=== PATIENT | male | born 1955 | race African-American/Black ===

== ENCOUNTER 2025-05-08 21:26 | Inpatient (IN) | payer MEDICARE, SELFPAY ==
[2025-05-08 21:37] VITALS: BP 157/91; PULSE 55; RESP 19; TEMP 35.8; O2SAT 98; BMI 23.6
--- NOTE | 2025-05-08 21:41 | DI.RAD.S_ITS ---
PROCEDURE: XR CHEST 2V INDICATIONS: shortness of breath TECHNIQUE: 2 views of the chest were acquired. COMPARISON: None. FINDINGS: Surgical changes and devices: None. Lungs and pleura: Right infrahilar consolidation, likely atelectasis. Small left pleural effusion. Cephalization of the pulmonary vasculature with central pulmonary vascular congestion. Mediastinum: Moderate cardiomegaly. Bones and chest wall: No suspicious bony abnormalities. Soft tissues appear unremarkable. IMPRESSION: Moderate cardiomegaly with mild pulmonary edema and small bilateral pleural effusions. Dictated by: Alex Hogan M.D. on 05/08/2025 at 22:35 Approved by: Alex Hogan M.D. on 05/08/2025 at 22:37
[2025-05-09] VITALS (24 sets, daily range): BP systolic 125–152; BP diastolic 77–95; PULSE 46–103; RESP 18–42; TEMP 35.9–37.3; O2SAT 92–99; BMI 23.6
--- NOTE | 2025-05-09 01:51 | EKG_ITS ---
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
--- NOTE | 2025-05-09 03:20 | EKG_ITS ---
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
--- NOTE | 2025-05-09 03:47 | ED_ITS ---
HPI - General Adult General Chief complaint: Shortness of Breath/Dyspnea Stated complaint: sick 1wk. SOB Time Seen by Provider: 05/09/25 01:50 Source: patient Mode of arrival: Ambulatory History of Present Illness HPI narrative: 70-year-old male complains of one-week duration of shortness of breath, denies fevers or chills cough, no chest pain. Denies lower extremity edema. No history of congestive heart failure. Denies history of chronic lung disease. Denies recent change in medications. No known recent exposure to persons with URI symptoms or Covid. No known history of blood clots to lungs or legs, no leg pains. Denies recent diaphoresis, nausea, arm pain anginal equivalent like symptoms. Related Data Home Medications ?Medication ?Instructions ?Recorded ?Confirmed No Known Home Medications 05/09/2501/26 Allergies Allergy/AdvReac Type Severity Reaction Status Date / Time No Known Drug Allergies Allergy Verified 05/08/25 21:37 Patient History Social History household members: spouse Smoking Status: Never smoker alcohol intake: current Smoking Status: Never smoker Exam Narrative Exam Narrative: GENERAL: Well-developed patient, in mild distress. HEAD: Atraumatic. Normocephalic. EYES: Pupils equal round and reactive. Extraocular motions intact. No scleral icterus. No injection or drainage. ENT: Nose without bleeding, purulent drainage. Throat without erythema, tonsillar hypertrophy or exudate. Airway patent. NECK: Trachea midline. Non tender CARDIOVASCULAR: Fast rate with regularly irregular rhythm (bigeminy on monitor), without obvious murmurs, gallops, or rubs. RESPIRATORY: Clear to auscultation. Breath sounds equal bilaterally. No wheezes, rales, or rhonchi. GASTROINTESTINAL: Abdomen soft, non-tender, nondistended. EXTREMITIES: No edema or joint tenderness. BACK: Nontender without deformity or crepitance. No flank tenderness. NEURO: AOx3. Motor functions grossly nonfocal. SKIN: No rash or erythema of visible areas Initial Vital Signs Initial Vital Signs: Vital Signs Temperature 96.4 F L 05/08/25 21:37 Pulse Rate 55 L 05/08/25 21:37 Respiratory Rate 19 05/08/25 21:37 Blood Pressure 157/91 H 05/08/25 21:37 Pulse Oximetry 98 05/08/25 21:37 Oxygen Delivery Method Room Air 05/08/25 21:37 Course Orders Ordered: Acetaminophen (Acetaminophen 325 Mg Tablet) 650 mg PO Q6H PRN PRN Reason: Fever/Mild Pain (1-3) Furosemide (Furosemide 40 Mg/4 Ml Vial) 40 mg IV Q12HR [facility] Heparin Sodium (Porcine) (Heparin 5,000 Unit/Ml Vial) 5,000 unit SUBCUT BID [facility] Last Admin: 05/09/25 13:10 Dose: Not Given Documented By: AMRIT Losartan Potassium (Losartan 25 Mg Tablet) 12.5 mg PO DAILY [facility] Naloxone HCl (Naloxone 0.4 Mg/Ml Vial) 0.2 mg IV Q2MIN PRN PRN Reason: Opiate Reversal Ondansetron HCl (Ondansetron 4 Mg/2 Ml Inj) 4 mg IV Q8HR PRN PRN Reason: Nausea And Vomiting Spironolactone (Spironolactone 12.5 Mg Tablet) 12.5 mg PO DAILY [facility] Discontinued Medications Furosemide (Furosemide 40 Mg/4 Ml Vial) 40 mg IV NOW ONE Stop: 05/09/25 04:03 Last Admin: 05/09/25 04:13 Dose: 40 mg Documented By: VALERI Furosemide (Furosemide 40 Mg/4 Ml Vial) 40 mg IV NOW ONE Stop: 05/09/25 04:20 Last Admin: 05/09/25 10:07 Dose: Not Given Documented By: Metoprolol Succinate (Metoprolol Er 25 Mg Tablet) 25 mg PO NOW ONE Stop: 05/09/25 04:59 Last Admin: 05/09/25 05:20 Dose: 25 mg Documented By: VALERI Vital Signs Vital signs: Vital Signs - 8 hr 05/09/25 08:30 05/09/25 09:00 05/09/25 09:30 Pulse Rate 52 L 50 L 52 L Pulse Oximetry 96 97 Medical Decision Making Lab Data Lab results reviewed: Yes I reviewed the patient's lab results. Lab results narrative: White blood cell count 6100, hemoglobin 16.3, platelets adequate. Glucose 104. BUN 41 with creatinine 1.53, serum CO2 19. Sodium 130 low, potassium 5.2 elevated. Total bilirubin 2.1 elevated, AST 934, ALT 958, alkaline phosphatase 85. Lipase normal. Troponin 0.062 measurable, indeterminate range. BNP 79574 elevated. 05/09/25 03:30 05/09/25 05:40 Labs: Lab Results 05/09/25 05/09/25 Range/Units 03:30 05:40 WBC 6.1 (4.5-11.0) X10^3/uL RBC 5.08 (4.5-5.9) X10^6/uL Hgb 16.3 (13.5-17.5) g/dL Hct 48.3 (41-53) % MCV 95.2 (80-100) fL MCH 32.2 (26-34) PG MCHC 33.8 (30-36) % RDW 14.2 (11.6-14.8) % Plt Count 193 (150-400) X10^3/uL Neut % (Auto) 64.0 (50-75) % Lymph % (Auto) 22.3 L (25-40) % [place] % (Auto) 12.7 (3-14) % Eos % (Auto) 0.1 L (2-4) % Baso % (Auto) 0.9 (0-2) % Neut # (Auto) 3900 (8961-5330) /uL Lymph # (Auto) 1400 (0014-8633) /uL [place] # (Auto) 800 (0-900) /uL Eos # (Auto) 0 (0-450) /uL Baso # (Auto) 100 (0-100) /uL Sodium 130 L (137-145) mmol/L Potassium 5.2 H 4.9 (3.4-5.1) mmol/L Chloride 100 (98-107) mmol/L Carbon Dioxide 19 L (22-32) mmol/L BUN 41 H (9-20) mg/dL Creatinine 1.53 H (0.66-1.25) mg/dL Estimated GFR 48 L (>60) mL/min BUN/Creatinine Ratio 26.8 H (6-22) Glucose 104 H (70-99) mg/dL Calcium 8.9 (8.4-10.2) mg/dL Magnesium 1.9 (1.6-2.3) mg/dL Total Bilirubin 2.1 H (0.2-1.3) mg/dL AST 934 H (17-59) IU/L ALT 958 H (<50) IU/L Alkaline Phosphatase 85 (38-126) U/L Troponin I 0.062 H 0.070 H (0.01-0.034) ng/mL NT-Pro-B Natriuret Pep 38515 H (<125) pg/mL Total Protein 6.9 (6.3-8.2) g/dL Albumin 3.9 (3.5-5.0) g/dL Globulin 3.0 (1.7-4.1) g/dL Albumin/Globulin Ratio 1.3 (1.0-2.8) Lipase 132 (23-300) U/L Urine Dip Bedside Urine Glucose Negative Bedside Urine Bilirubin - Negative Bedside Urine Ketone - Negative Urine Specific [place] 1.015 Bedside Urine Occult Blood + Bedside Urine pH 6.0 Bedside Urine Protein - Negative Bedside Urine Urobilinogen - Negative Bedside Urine Nitrite - Negative Bedside Urine Leukocytes - Negative Esterase Point of care testing: Urine Dip Bedside Urine Glucose Negative Bedside Urine Bilirubin - Negative Bedside Urine Ketone - Negative Urine Specific [place] Path 1.015 Bedside Urine Occult Blood + Bedside Urine pH 6.0 Bedside Urine Protein - Negative Bedside Urine Urobilinogen - Negative Bedside Urine Nitrite - Negative Bedside Urine Leukocytes - Negative Esterase Imaging Data Chest x-ray: Radiologist's Impression: [place] [address] XRay Report Signed Patient: Benedicto Andrea MR#: [id number] : 1955 Acct:[id number] Age/Sex: 70 / M Date of Service: 05/08/25 Loc: ED Accession Number: [id number] Procedure: XR chest 2V Ordering Provider: Darío Vance MD PROCEDURE: XR CHEST 2V INDICATIONS: shortness of breath TECHNIQUE: 2 views of the chest were acquired. COMPARISON: None. FINDINGS: Surgical changes and devices: None. Lungs and pleura: Right infrahilar consolidation, likely atelectasis. Small left pleural effusion. Cephalization of the pulmonary vasculature with central pulmonary vascular congestion. Mediastinum: Moderate cardiomegaly. Bones and chest wall: No suspicious bony abnormalities. Soft tissues appear unremarkable. IMPRESSION: Moderate cardiomegaly with mild pulmonary edema and small bilateral pleural effusions. Dictated by: Alex Hogan M.D. on 05/08/2025 at 22:35 Approved by: Alex Hogan M.D. on 05/08/2025 at 22:37 ECG Data Attestation: I personally reviewed and interpreted this ECG as follows: Interpretation: 0320, sinus tachycardia with frequent PVCs bigeminy pattern. Left bundle branch block. FL 150, QRS 160, QTC 544. [facility] Narrative Medical decision making narrative: 70-year-old male with one-week duration increasing shortness of breath, afebrile, lungs clear, speaks in full sentences, normal room air oxygenation. Chest x-ray, EKG, labs pending. DDx consider infection, reactive airways, congestive heart failure, pneumonia, other. EKG shows sinus tachycardia rate 102, left bundle branch block pattern, with PVCs and bigeminy pattern. FL 150, QRS 160, QTC 544. Chest x-ray shows mild pulmonary edema, small bilateral pleural effusions. See radiology report. Lab data: White blood cell count 6100, hemoglobin 16.3, platelets adequate. Glucose 104. BUN 41 with creatinine 1.53, serum CO2 19. Sodium 130 low, potassium 5.2 elevated. Total bilirubin 2.1 elevated, AST 934, ALT 958, alkaline phosphatase 85. Lipase normal. Troponin 0.062 measurable, indeterminate range. BNP 24392 quite elevated. IV Lasix 40 mg, did seem to induce diuresis, frequent urination. 0430, patient expressed desire to leave, did not seem to want to stay for echocardiogram or admission. Will consult cardiology for close follow up if he departs AMA. 0445, case discussed with Dr. Cavazos cardiology who can see patient in close follow up, advises discharged on Lasix 20 mg with potassium supplementation, also start low-dose Toprol. Toprol 25mg oral dose given. 0450, now patient agreeable to be admitted. Has no PCP local, we will consult with hospitalist. We will repeat interval troponin and recheck potassium as patient willing to stay. Repeat troponin 0.075 indeterminate range, likely type 2 injury given CHF changes. 0530, paged hosptialist for admission. 0630, call back from night hospitalist Dr. Ring who has too many admissions and an online emergency care situation, defers admission to morning hospitalist here. Echocardiogram order placed. 0700, await call back from dayshift hospitalist. Signed out to oncoming ED shift physician Dr. Harrell. Discharge Plan Departure Patient Disposition: Admitted As Inpatient Clinical Impression: Heart failure, Elevated LFTs Admit Date/Time: 05/09/25 09:45 Admit Provider: Eric Salomon
[2025-05-09 03:51] LABS: Add Manual Diff / Slide Review NO; Hematocrit 48.3 % (41-53); Hemoglobin 16.3 g/dL (13.5-17.5); Lymphocytes Absolute Auto 1400 /uL (1100-4500); Mean Corpuscular HGB Conc 33.8 % (30-36); Mean Corpuscular Hemoglobin 32.2 PG (26-34); Mean Corpuscular Volume 95.2 fL (80-100); Platelet Count 193 X10^3/uL (150-400)
[2025-05-09 04:01] LABS: Albumin 3.9 g/dL (3.5-5.0); Albumin Globulin Ratio 1.3 (1.0-2.8); Alkaline Phosphatase 85 U/L (38-126); Blood Urea Nitrogen 41 mg/dL (9-20); Calcium 8.9 mg/dL (8.4-10.2); Carbon Dioxide 19 mmol/L (22-32); Chloride 100 mmol/L (98-107); Estimated Glomerular Filt Rate 48 mL/min (>60); Globulin 3.0 g/dL (1.7-4.1); Glucose 104 mg/dL (70-99); HEMOLYSIS 16 (0-50); Lipase 132 U/L (23-300); Magnesium 1.9 mg/dL (1.6-2.3); Potassium 5.2 mmol/L (3.4-5.1); Sodium 130 mmol/L (137-145); Total Protein 6.9 g/dL (6.3-8.2)
[2025-05-09 04:08] LABS: Alanine Aminotransferase 958 IU/L (<50)
[2025-05-09 04:12] LABS: NT-proBNP (BNP-Adult 18+) 12000 pg/mL (<125); Troponin I 0.062 ng/mL (0.01-0.034)
[2025-05-09] MEDS: FUROSEMIDE 40 MG/4 ML VIAL IV ×2 (04:13→23:31)
[2025-05-09] MEDS: METOPROLOL ER 25 MG TABLET PO (05:20)
[2025-05-09 05:58] LABS: Potassium 4.9 mmol/L (3.4-5.1)
[2025-05-09 06:03] LABS: HEMOLYSIS 53 (0-50)
[2025-05-09 06:14] LABS: Troponin I 0.070 ng/mL (0.01-0.034)
--- NOTE | 2025-05-09 06:48 | DI.ECHO.S_ITS ---
[facility] : : [address] : : [place] : : [address] : : Phone: [phone] Echocardiogram Report + + :Name: STEVIE ANTUNEZ Study Date: 05/09/2025 Height: 68 in : :[facility] ReadingLocation: Weight: 155 lb : : Gender: Male BSA: 1.8 m2 : :: 1955 Age: 70 yrs BP: 142/82 mmHg: :Reason For Study: NEW DX CONGESTIVE HEART FAILURE : :Ordering Physician: RAY, : :JUVE Performed By: Kelley Cassidy : :Referring: JUVE BELL : + + Interpretation Summary 1) Severely enlarged left ventricle with severely reduced systolic function (EF 10-15%). 2) Moderately enlarged right ventricle with mildly reduced function. 3) There is moderate functional mitral regurgitation. 4) There is severe tricuspid regurgitation 5) The right ventricular systolic pressure is estimated to be at least 69 mmHg based on an estimated right atrial pressure of 15 mm Hg. 6) No prior Echo available for comparison. Procedure: A two-dimensional transthoracic echocardiogram with color flow and Doppler was performed. The study quality was technically good. There is no prior echocardiogram noted for this patient. The patient had frequent PVCs during the exam. EKG artifact throughout, unknown rate. Frequent PVCs. Left Ventricle: The left ventricle is severely dilated. There is normal left ventricular wall thickness. The ejection fraction is estimated to be 10-15%. The interventricular septum is flattened, consistent with a right ventricular pressure/volume condition. Diastolic function could not be accurately assessed due to unobtainable data. Right Ventricle: The right ventricle is moderately dilated. Right ventricular systolic function is mildly reduced. Atria: The left atrium is severely dilated. The right atrium is severely dilated. There is no Doppler evidence for an interatrial shunt. Mitral Valve: The mitral valve leaflets appear moderately thickened. The mitral valve leaflets are mildly calcified. There is moderate mitral regurgitation. Aortic Valve: The aortic valve is trileaflet. The aortic valve opens well. There is mild aortic valve sclerosis. There is no aortic valve stenosis. There is trace aortic regurgitation. Tricuspid Valve: Tricuspid leaflets are thickened. There is severe tricuspid regurgitation. The right ventricular systolic pressure is estimated to be at least 69 mmHg based on an estimated right atrial pressure of 15 mm Hg. Pulmonic Valve: There is borderline thickening of the pulmonic valve. There is moderate pulmonic regurgitation. Great Vessels: The aortic root is normal size. The dimensions of the ascending aorta are normal. The IVC is dilated (diameter is greater than 2.1 cm) and it collapses less than 50% with a sniff. This suggests a high right atrial pressure of 15 mm Hg. Pericardium/ Pleura There is no pericardial effusion. There is no pleural effusion. MMode/2D Measurements & Calculations LVIDd: 6.7 cm LVOT diam: 2.0 cm LVIDs: 5.9 cm Ao root diam: 3.1 cm FS: 10.9 % asc Aorta Diam: 2.9 cm EPSS: 2.0 cm Ao Arch Diam (Prox Trans): 2.5 cm IVSd: 0.72 cm LVPWd: 1.0 cm LV mckeon. diameter/BSA (cm/m^2): 3.6 LV sys. diameter/BSA (cm/m^2): 3.2 LA A2 area: 31.1 cm2 RA long axis: 5.3 cm LA A4 area: 18.9 cm2 RA area: 23.2 cm2 LA length (vol): 5.9 cm RA vol: 86.6 ml LA vol: 84.4 ml RA : 47.2 ml/m2 LA vol index: 46.0 ml/m2 IVC diam: 2.2 cm RVD1 (basal): 5.5 cm RVD2 (mid): 4.2 cm TAPSE: 1.9 cm Doppler Measurements & Calculations Ao V2 max: 148.2 cm/sec LVOT Max Ramesh: 73.9 cm/sec Ao V2 mean: 95.4 cm/sec LV V1 max P.2 mmHg Ao max P.8 mmHg LV V1 VTI: 8.6 cm Ao mean P.2 mmHg YO(I,D): 1.5 cm2 Ao V2 VTI: 17.9 cm YO(V,D): 1.5 cm2 sev ratio: 0.48 YO indexed to BSA (cm^2/m^2): 0.81 MV E max ramesh: 68.0 cm/sec TR max ramesh: 368.9 cm/sec MV A max ramesh: 85.0 cm/sec TR max P.4 mmHg MV E/A: 0.80 PA V2 max: 97.9 cm/sec Med Peak E' Ramesh: 7.3 cm/sec PA V2 mean: 69.8 cm/sec E/E' med: 9.3 PA mean P.2 mmHg Lat Peak E' Ramesh: 7.4 cm/sec PA pr(Accel): 44.7 mmHg E/E' lat: 9.2 E/e' average: 9.3 MV dec time: 0.14 sec MR ERO: 0.17 cm2 MR PISA: 2.4 cm2 SV(LVOT): 26.7 ml MR flow rate: 94.8 cm3/sec MR PISA radius: 0.62 cm Reading Physician:12:44 PM
--- NOTE | 2025-05-09 08:50 | PC.NURSE ---
Pt wandering department independently stable gait. Has difficulty when multiple people are asking him to do things.
--- NOTE | 2025-05-09 15:12 | P.HP_ITS ---
History of Present Illness History of Present Illness Date Patient Seen: 05/09/25 Chief complaint: sick 1wk. SOB Narrative: Chief complaint: Progressive dyspnea on exertion secondary to dilated cardiomyopathy and acute on chronic systolic congestive heart failure History of present illness: 05/09: 70-year-old male with no previous significant history very active with walking yd work and gardening 1 week ago but increasing difficulty breathing thought it was the mask he was wearing to prevent pollen from being inhaled. This got worse noticed some ankle edema and finally was brought to the emergency department. Findings in the emergency department significant for gentleman with dyspnea hypoxia chest x-ray showing a very large cardiac silhouette and pleural effusion EKG showing sinus rhythm with left bundle branch block difficult to interpret ST segments and T-waves and QT interval of 470 Sodium 130 potassium 4.9 BUN 41 creatinine 1.5 Pro BNP 08057 troponin 0.07 Total bilirubin 2.1 AST 934 ALT 958 Echocardiogram: ) Severely enlarged left ventricle with severely reduced systolic function (EF 10-15%). 2) Moderately enlarged right ventricle with mildly reduced function. 3) There is moderate functional mitral regurgitation. 4) There is severe tricuspid regurgitation 5) The right ventricular systolic pressure is estimated to be at least 69 mmHg based on an estimated right atrial pressure of 15 mm Hg. Review of systems: No fever or chills no cough no chest pain radiation diaphoresis episodes of lightheadedness or syncope No nausea vomiting diarrhea No urinary The paresthesia paresis No unusual weight loss or weight gain Physical exam: Elderly male appearing athletic mildly labored respirations at rest but otherwise oxygenating normally on room air eating his lunch HEENT unremarkable Neck no JVD to the angle of the jaw Heart rate and rhythm regular with a loud apical systolic murmur chest heave with paradoxical motion and summation gallop There is hepatojugular reflux Lower extremities 2+ edema from the knee distally Is alert and oriented Neurologic nonfocal Assessment and plan: Severe dilated cardiomyopathy ejection fraction 10-15% with moderate tricuspid regurgitation with severe right-sided congestive heart failure and severe tricuspid regurgitation likely progressive with acute on chronic systolic congestive heart failure Suspected cardiorenal syndrome Congestive hepatopathy * Case discussed with Cardiology recommend gentle diuresis starting spironolactone and Entresto (Entresto not on formulary losartan 12.5 mg was started) * We will at some point need cardiac catheterization * Monitor liver enzymes BUN creatinine daily DVT prophylaxis: * Subcutaneous heparin Code status: * Full code Disposition: * Inpatient care expect about 3 days or more to optimize and compensate congestive heart failure * [facility] in a couple of days or as outpatient Time based billing: * 75 minutes were involved in the evaluation of this patient including direct [id number] patient evaluation discussion with patient's spouse and family direct physical examination of the patient discussion with cardiologists discussion with ER provider review of objective data including direct visualization of imaging and discussion of treatment plan with nursing team [facility] Social History household members: spouse Smoking Status: Never smoker alcohol intake: current Meds Home Medications and Allergies Home Medications ?Medication ?Instructions ?Recorded ?Confirmed ?Type No Known Home Medications 05/09/25 1001/26 History Allergies Allergy/AdvReac Type Severity Reaction Status Date / Time No Known Drug Allergies Allergy Verified 05/08/25 21:37 Exam Vital Signs (past 8 hours): - 05/09/25 07:36 05/09/25 08:05 05/09/25 08:30 Temperature Pulse Rate 50 L 53 L 52 L Respiratory Rate Blood Pressure Pulse Oximetry 97 96 Oxygen Delivery Method Oxygen Flow Rate 05/09/25 09:00 05/09/25 09:30 05/09/25 10:00 Temperature Pulse Rate 50 L 52 L 46 L Respiratory Rate Blood Pressure Pulse Oximetry 96 97 97 Oxygen Delivery Method Room Air Oxygen Flow Rate 05/09/25 10:11 05/09/25 10:11 Temperature 96.6 F L Pulse Rate 52 L Respiratory Rate 18 Blood Pressure 145/90 H Pulse Oximetry 92 99 Oxygen Delivery Method Room Air Oxygen Flow Rate 0 0 Oxygen Delivery Method Room Air Oxygen Flow Rate 0 Objective Labs 05/09/25 03:30 05/09/25 05:40 Labs: Laboratory Results - last 24 hr 05/09/25 05/09/25 03:30 05:40 WBC 6.1 RBC 5.08 Hgb 16.3 Hct 48.3 MCV 95.2 MCH 32.2 MCHC 33.8 RDW 14.2 Plt Count 193 Neut % (Auto) 64.0 Lymph % (Auto) 22.3 L [place] % (Auto) 12.7 Eos % (Auto) 0.1 L Baso % (Auto) 0.9 Neut # (Auto) 3900 Lymph # (Auto) 1400 [place] # (Auto) 800 Eos # (Auto) 0 Baso # (Auto) 100 Sodium 130 L Potassium 5.2 H 4.9 Chloride 100 Carbon Dioxide 19 L BUN 41 H Creatinine 1.53 H Estimated GFR 48 L BUN/Creatinine Ratio 26.8 H Glucose 104 H Calcium 8.9 Magnesium 1.9 Total Bilirubin 2.1 H AST 934 H ALT 958 H Alkaline Phosphatase 85 Troponin I 0.062 H 0.070 H NT-Pro-B Natriuret Pep 35381 H Total Protein 6.9 Albumin 3.9 Globulin 3.0 Albumin/Globulin Ratio 1.3 Lipase 132 Assessment & Plan Time-Based Coding :: [TOTAL MINUTES] spent with patient and on the chart (including review of chart, obtaining history, exam, reviewing outside data, placing orders, documenting exam and treatment plan, and counseling patient) on [DATE]. Quality VTE Deep Vein Thrombosis/Pulmonary Embolism Present on Admission: No
[2025-05-09] MEDS: MELATONIN 3 MG TABLET 6 MG PO (23:31)
[2025-05-10] VITALS (8 sets, daily range): BP systolic 110–132; BP diastolic 82–92; PULSE 82–105; RESP 15–20; TEMP 36.1–37.6; O2SAT 93–98
[2025-05-10 07:06] LABS: Alanine Aminotransferase 677 IU/L (<50); Albumin 3.3 g/dL (3.5-5.0); Albumin Globulin Ratio 1.1 (1.0-2.8); Alkaline Phosphatase 89 U/L (38-126); Blood Urea Nitrogen 42 mg/dL (9-20); Calcium 8.5 mg/dL (8.4-10.2); Carbon Dioxide 21 mmol/L (22-32); Chloride 98 mmol/L (98-107); Estimated Glomerular Filt Rate 56 mL/min (>60); Globulin 2.9 g/dL (1.7-4.1); Glucose 101 mg/dL (70-99); HEMOLYSIS 30 (0-50); Potassium 4.7 mmol/L (3.4-5.1); Sodium 128 mmol/L (137-145); Total Protein 6.2 g/dL (6.3-8.2)
[2025-05-10] MEDS: HEPARIN 5,000 UNIT/ML VIAL 5000 UNIT SUBCUT ×2 (08:12→21:44)
[2025-05-10] MEDS: LOSARTAN 25 MG TABLET 12.5 MG PO (08:16)
[2025-05-10] MEDS: SODIUM CHLORIDE 0.9% FLUSH 10 ML IV ×3 (08:18→21:45)
--- NOTE | 2025-05-10 08:53 | P.CONS_ITS ---
History of Present Illness Consult details Date Patient Seen: 05/10/25 Time Patient Seen: 08:54 Chief complaint: sick 1wk. SOB Narrative: This is a 70-year-old male no significant past medical history presented to the hospital with symptoms of shortness of breath for 1 week. Patient is a delightful very active 70-year-old man who works in the [employer] regularly. Very home doing house chores. Approximately a week ago he started feeling shortness of breath and felt that it caused allergies he continued to have symptoms of worsening shortness with minimal activity. He also reported episodes of cough without any expectoration. He denied any fever chills or feeling poorly prior to having these symptoms. He reported no symptoms of chest pains both at rest or with exertion. As the week went by he started experiencing orthopnea and paroxysmal nocturnal dyspnea. His symptoms got to the point that he felt poorly and decided to come to the hospital for evaluation. Meds Home Medications and Allergies Home Medications ?Medication ?Instructions ?Recorded ?Confirmed ?Type No Known Home Medications 05/09/2501/26 History Allergies Allergy/AdvReac Type Severity Reaction Status Date / Time No Known Drug Allergies Allergy Verified 05/08/25 21:37 Review of Systems Review of Systems ROS: Yes All systems reviewed with the patient and are negative except as otherwise documented ENT Ears, Nose, Mouth, and Throat: Yes system reviewed and no additional complaints, except as documented Cardiovascular Cardiovascular: Reports dyspnea Respiratory Respiratory: Reports chest congestion and Reports dyspnea Comments: cough Exam Vital Signs (past 8 hours): - 05/10/25 03:00 05/10/25 06:00 05/10/25 08:16 Temperature 99.6 F Pulse Rate 105 H 101 H Respiratory Rate 20 Blood Pressure 122/92 H 118/92 H Pulse Oximetry 95 98 Oxygen Delivery Method Room Air Oxygen Flow Rate 0 Oxygen Delivery Method Room Air Oxygen Flow Rate 0 Const General: cooperative and in distress Nutritional Appearance: average body habitus Orientation: oriented x3 HENMT Head: normal to inspection Eyes General: appearance normal, both eyes and all related structures Neck Neck: normal visual inspection Other: JVP is elevated. Chest Other: Bilateral rales to mid chest. Resp Effort & Inspection: able to speak in complete sentences and uses accessory muscles Other: Bilateral rales with wheezing Cardio Palpation: abnormal PMI and thrill Rate: tachycardic Rhythm: regular rhythm Heart Sounds: S1 normal, S2 normal and murmur Other: skin is warm to touch Skin General: no rashes or lesions noted Objective ECG Impression: Interpretation Summary 1) Severely enlarged left ventricle with severely reduced systolic function (EF 10-15%). 2) Moderately enlarged right ventricle with mildly reduced function. 3) There is moderate functional mitral regurgitation. 4) There is severe tricuspid regurgitation 5) The right ventricular systolic pressure is estimated to be at least 69 mmHg based on an estimated right atrial pressure of 15 mm Hg. 6) No prior Echo available for comparison. I personally reviewed the echo images. I suspect the Pulmonary artery dilatation, RVOT dilatation, suspected thrombus post pulmonary valve. 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 and other other: Gardening Tobacco & Substance Use Smoking Status: Never smoker alcohol intake: current Diet and Exercise during the past year weight has: remained stable well-balanced diet: daily or most days Assessment & Plan Assessment and plan (1) Mitral regurgitation: Qualifiers: Cardiac valve disease etiology: nonrheumatic Qualified Code(s): I34.0 - Nonrheumatic mitral (valve) insufficiency Status: Acute (2) Tricuspid valve regurgitation: Qualifiers: Cardiac valve disease etiology: etiology unspecified Qualified Code(s): I07.1 - Rheumatic tricuspid insufficiency Status: Acute (3) Acute systolic heart failure: Status: Acute (4) Elevated LFTs: Status: Acute (5) Pulmonary artery thrombosis: Status: Acute Plan 70-year-old male with no significant past medical history presented to the hospital with one-week history of exertional shortness of breath progressively worse with symptoms at rest orthopnea and PND and leg swelling. He was admitted through the emergency room and started on losartan, Lasix, spironolactone after initial echocardiogram revealed ejection fraction of 10-15% dilated LV, dilated RV, dilated right ventricular outflow tract, dilated pulmonary artery, severe tricuspid regurgitation, moderate to severe mitral regurgitation. I personally reviewed the echocardiogram and noted a suspected thrombus in the pulmonary artery 1. Acute systolic heart failure: Acute presentation of shortness of breath with severe systolic dysfunction of unclear etiology at this point. Possible etiologies include coronary artery disease, primary mitral regurgitation, primary tricuspid regurgitation. Patient needs additional workup however given his unstable hemodynamics I would like to start him on diuretics and afterload reducing medications. He was started on losartan, spironolactone, Lasix. He is symptomatically feeling better from yesterday. 2. Pulmonary embolism: Patient has severe tricuspid regurgitation with RV dilatation RV OT dilatation. I do suspect he has a thrombus in the pulmonary artery I am ordering a stat CT scan of pulmonary artery and will start him on anticoagulants right away. Patient is currently on heparin for DVT prophylaxis. 3. Mitral regurgitation: Both primary and secondary mitral regurgitation are suspected. His LV is severely dilated perhaps his mitral regurgitation is due to annular dilatation. 4. Tricuspid regurgitation most likely due to elevated PA pressures or acute pulmonary embolism. Plan and recommendations: CTA pulmonary artery as soon as possible Lasix 40 mg b.i.d. intravenous Spironolactone 25 mg daily Losartan 25 mg daily DVT prophylaxis Input output charting Fluid restriction to 1.5L daily Salt restricted diet It has been a pleasure working with you. Please do not hesitate to call me if you have any questions I am available at [phone] thank you very much. Time-Based Coding :: [TOTAL MINUTES] spent with patient and on the chart (including review of chart, obtaining history, exam, reviewing outside data, placing orders, documenting exam and treatment plan, and counseling patient) on [DATE].
--- NOTE | 2025-05-10 08:58 | DI.CT.S_ITS ---
PROCEDURE: CT ANGIO CHEST PE PROTOCOL INDICATIONS: Pulmonary embolus TECHNIQUE: After the administration of intravenous contrast, 2 mm thick sections acquired from the pulmonary apices to the posterior costophrenic angles. 3-dimensional maximum intensity projection (MIP) coronal and sagittal reformats were then acquired through the thorax. For radiation dose reduction, the following was used: automated exposure control, adjustment of mA and/or kV according to patient size. COMPARISON: None. FINDINGS: Image quality: Diagnostic. Pulmonary arteries: Pulmonary arteries are normal in size, and demonstrate no intraluminal filling defects to suggest central pulmonary embolism. Lower Neck: No enlarged lymph nodes. Thyroid: No thyroid nodules which require sonographic follow up, per consensus guidelines. Axillae: No enlarged lymph nodes. Chest Wall: Unremarkable. Bones: Unremarkable. Lungs and Pleura: Mild bilateral effusions. Heart: Heart size is enlarged. No pericardial effusion. Thoracic Vessels: No aortic aneurysm. Mediastinum and Lexie: No enlarged lymph nodes. Esophagus: No wall thickening. Minimal hiatal hernia. Upper Abdomen: Hepatic and renal cysts. IMPRESSION: No pulmonary embolus. Mild bilateral effusions. Dictated by: Kathy العلي M.D. on 05/10/2025 at 9:33 Approved by: Kathy العلي M.D. on 05/10/2025 at 9:34
[2025-05-10] MEDS: FUROSEMIDE 40 MG/4 ML VIAL IV (12:05)
[2025-05-10] MEDS: MELATONIN 3 MG TABLET 6 MG PO (21:45)
[2025-05-11] VITALS (9 sets, daily range): BP systolic 97–119; BP diastolic 71–81; PULSE 89–101; RESP 16–17; TEMP 36.3–36.8; O2SAT 92–97
--- NOTE | 2025-05-11 03:46 | PC.NURSE ---
A&Ox4, on room air. PIV on RFA.On Tele with BBB's and Ejection fraction 10-15%. Possible transfer for Cardiac Catheter. Nursing management continued.
[2025-05-11 06:06] LABS: Alanine Aminotransferase 488 IU/L (<50); Albumin 3.1 g/dL (3.5-5.0); Albumin Globulin Ratio 1.1 (1.0-2.8); Alkaline Phosphatase 97 U/L (38-126); Blood Urea Nitrogen 36 mg/dL (9-20); Calcium 8.2 mg/dL (8.4-10.2); Carbon Dioxide 26 mmol/L (22-32); Chloride 97 mmol/L (98-107); Estimated Glomerular Filt Rate > 60 mL/min (>60); Globulin 2.9 g/dL (1.7-4.1); Glucose 109 mg/dL (70-99); HEMOLYSIS 16 (0-50); Potassium 3.7 mmol/L (3.4-5.1); Sodium 130 mmol/L (137-145); Total Protein 6.0 g/dL (6.3-8.2)
--- NOTE | 2025-05-11 07:35 | P.PN_ITS ---
Subjective Subjective Interval history: Summary: 05/09: 70-year-old male with no previous significant history very active with walking yd work and gardening 1 week ago but increasing difficulty breathing thought it was the mask he was wearing to prevent pollen from being inhaled. This got worse noticed some ankle edema and finally was brought to the emergency department. Findings in the emergency department significant for gentleman with dyspnea hypoxia chest x-ray showing a very large cardiac silhouette and pleural effusion EKG showing sinus rhythm with left bundle branch block difficult to interpret ST segments and T-waves and QT interval of 470 Sodium 130 potassium 4.9 BUN 41 creatinine 1.5 Pro BNP 88529 troponin 0.07 Total bilirubin 2.1 AST 934 ALT 958 Echocardiogram: ) Severely enlarged left ventricle with severely reduced systolic function (EF 10-15%). 2) Moderately enlarged right ventricle with mildly reduced function. 3) There is moderate functional mitral regurgitation. 4) There is severe tricuspid regurgitation 5) The right ventricular systolic pressure is estimated to be at least 69 mmHg based on an estimated right atrial pressure of 15 mm Hg. Review of systems: No fever or chills no cough no chest pain radiation diaphoresis episodes of lightheadedness or syncope No nausea vomiting diarrhea No urinary The paresthesia paresis No unusual weight loss or weight gain S: He denies dyspnea, or chest pain he was no leg edema. O: NAD, alert and oriented. Fluent speech. Lungs are clear, normal rate and effort. Heart is regular, no murmur gallop or rub. Abdomen is soft, non distended. Extremities with 2+ edema. A/P: 1. Severe dilated cardiomyopathy ejection fraction 10-15% with 2. moderate tricuspid regurgitation with 3. severe right-sided congestive heart failure and 4. severe tricuspid regurgitation likely progressive with acute on chronic systolic congestive heart failure 5. Suspected cardiorenal syndrome 6. Congestive hepatopathy PLAN: -continue IV diuresis and up titration of beta blockade. -Add spironolactone. -DW cardiology regarding cath plan. DVT prophylaxis: * Subcutaneous heparin Code status: * Full code Disposition: * Inpatient care expect about 3 days or more to optimize and compensate congestive heart failure * [facility] for [facility] in a couple of days or as outpatient Exam Vital Signs (past 8 hours): - 05/11/25 00:00 05/11/25 00:00 05/11/25 04:00 Temperature 97.6 F 98.2 F Pulse Rate 92 H 101 H Respiratory Rate 16 17 Blood Pressure 113/81 115/76 Pulse Oximetry 95 95 92 Oxygen Delivery Method Room Air Oxygen Flow Rate 0 0 Oxygen Delivery Method Room Air Oxygen Flow Rate 0 Objective Labs 05/09/25 03:30 05/11/25 05:00 Labs: Laboratory Results - last 24 hr 05/11/25 05:00 Sodium 130 L Potassium 3.7 Chloride 97 L Carbon Dioxide 26 BUN 36 H Creatinine 1.21 Estimated GFR > 60 BUN/Creatinine Ratio 29.8 H Glucose 109 H Calcium 8.2 L Total Bilirubin 1.4 H AST 238 H ALT 488 H Alkaline Phosphatase 97 Total Protein 6.0 L Albumin 3.1 L Globulin 2.9 Albumin/Globulin Ratio 1.1 PFSH Medical History (Updated 05/11/25 @ 09:43 by Ar Cavazos MD) Acute systolic heart failure Social History household members: spouse Previous occupational history: [employer] leisure activities: exercise and other other: Gardening Smoking Status: Never smoker alcohol intake: current during the past year weight has: remained stable well-balanced diet: daily or most days Assessment & Plan Time-Based Coding :: [TOTAL MINUTES] spent with patient and on the chart (including review of chart, obtaining history, exam, reviewing outside data, placing orders, documenting exam and treatment plan, and counseling patient) on [DATE]. Quality VTE Deep Vein Thrombosis/Pulmonary Embolism Present on Admission: No
[2025-05-11] MEDS: LOSARTAN 25 MG TABLET 12.5 MG PO (09:09)
[2025-05-11] MEDS: HEPARIN 5,000 UNIT/ML VIAL 5000 UNIT SUBCUT ×2 (09:09→20:10)
[2025-05-11] MEDS: SODIUM CHLORIDE 0.9% FLUSH 10 ML IV ×2 (09:10→20:10)
--- NOTE | 2025-05-11 09:36 | PM.PN.1 ---
Subjective Subjective Date Patient Seen: 05/11/25 Time Patient Seen: 09:36 Interval history: 70-year-old male no significant past medical history presented to the hospital with symptoms of shortness of breath for 1 week. Patient is a delightful very active 70-year-old man who works in the [employer] regularly. Patient admitted hospital above symptoms and was diagnosed with severe systolic dysfunction ejection fraction of 10-15% moderate to severe MR severe tricuspid regurgitation. Patient was started on guideline directed medical therapy with spironolactone-aldosterone antagonist, Lasix, losartan. Exam Vital Signs (past 8 hours): - 05/11/25 04:00 05/11/25 08:00 05/11/25 09:09 Temperature 98.2 F 97.3 F L Pulse Rate 101 H 91 H Respiratory Rate 17 16 Blood Pressure 115/76 109/77 109/77 Pulse Oximetry 92 97 Oxygen Flow Rate 0 0 Oxygen Delivery Method Room Air Oxygen Flow Rate 0 Const General: cooperative and healthy appearing [facility] Head: normal to inspection Eyes General: appearance normal, both eyes and all related structures Neck Neck: normal visual inspection Chest Chest: normal inspection of the chest Resp Effort & Inspection: normal respiratory effort and able to speak in complete sentences Cardio Palpation: normal PMI Rate: regular rate Rhythm: regular rhythm Heart Sounds: S1 normal, S2 normal and normal, physiologic split S2 Skin General: no rashes or lesions noted Neuro General: patient oriented x3 Extrem Other: Swelling is much improved today. 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 activities: exercise and other other: Gardening Smoking Status: Never smoker alcohol intake: current during the past year weight has: remained stable well-balanced diet: daily or most days Assessment & Plan Assessment and plan (1) Acute systolic heart failure: Status: Acute (2) Tricuspid valve regurgitation: Qualifiers: Cardiac valve disease etiology: etiology unspecified Qualified Code(s): I07.1 - Rheumatic tricuspid insufficiency Status: Acute (3) Mitral regurgitation: Qualifiers: Cardiac valve disease etiology: nonrheumatic Qualified Code(s): I34.0 - Nonrheumatic mitral (valve) insufficiency Status: Acute (4) Elevated LFTs: Status: Acute Plan [facility] [employer]. Magnesium levels Carvedilol 3.125 mg twice daily Salt restricted diet Input output charting Magnesium supplement 400 mg daily Limited Echo to assess EF. Assessment & Plan narrative: 70-year-old male with no significant past medical history presented to the hospital with one-week history of exertional shortness of breath progressively worse with symptoms at rest orthopnea and PND and leg swelling. He was admitted through the emergency room and started on losartan, Lasix, spironolactone after initial echocardiogram revealed ejection fraction of 10-15% dilated LV, dilated RV, dilated right ventricular outflow tract, dilated pulmonary artery, severe tricuspid regurgitation, moderate to severe mitral regurgitation. I personally reviewed the echocardiogram and noted a suspected thrombus in the pulmonary artery 1. Acute systolic heart failure: Acute presentation of shortness of breath with severe systolic dysfunction of unclear etiology at this point. Possible etiologies include coronary artery disease, primary mitral regurgitation, primary tricuspid regurgitation. Patient needs additional workup however given his unstable hemodynamics I would like to start him on diuretics and afterload reducing medications. He was started on losartan, Spironolactone, Lasix. He is symptomatically feeling better from yesterday. AST and ALT are now improving. AST 238, ALT 488 today. Telemetry Sinus rhythm, monomorphic PVC. No NSVT or VT reported. 2. Mitral regurgitation: Both primary and secondary mitral regurgitation are suspected. His LV is severely dilated perhaps his mitral regurgitation is due to annular dilatation. 3. Tricuspid regurgitation most likely due to elevated PA pressures or acute pulmonary embolism. 4. Risk of sudden cardiac discuss with the patient. Pt is going to need Cardiac catheterization. Perhaps a transfer to [facility] or an outpatient. Time-Based Coding :: [TOTAL MINUTES] spent with patient and on the chart (including review of chart, obtaining history, exam, reviewing outside data, placing orders, documenting exam and treatment plan, and counseling patient) on [DATE]. Quality VTE Deep Vein Thrombosis/Pulmonary Embolism Present on Admission: No
--- NOTE | 2025-05-11 09:58 | DI.ECHO.S_ITS ---
[facility] : : [address] : : [place] : : [id number] : : Phone: [phone] Echocardiogram Report + + :Name: STEVIE ANTUNEZ Study Date: 05/11/2025 Height: 68 in : :[facility] ReadingLocation: Weight: 155 lb: : Gender: Male BSA: 1.8 m2 : :: 1955 Age: 70 yrs BP: 97/71 mmHg: :Reason For Study: SYSTOLIC HEART FAILURE : :Ordering Physician: DIMITRIOS, : :DAHIANA Performed By: Kelley Cassidy : :Referring: DAHIANA PLUNKETT : + + Interpretation Summary The ejection fraction is estimated to be 10-15%. There has been no significant change since the previous exam. Procedure: A two-dimensional transthoracic echocardiogram was performed in limited views only to assess ejection fraction.. The study quality was technically good. Comparison is made with the echocardiogram of 05/09/2025. The patient was in sinus rhythm with heart rates between 87-88 bpm during the exam. Left Ventricle: The left ventricle is severely dilated. The estimated left ventricular end diastolic volume is 290 ml. The ejection fraction is estimated to be 10-15%. There has been no significant change since the previous exam. Tricuspid Valve: There is severe tricuspid regurgitation. Great Vessels: The IVC is dilated (diameter is greater than 2.1 cm) and it collapses less than 50% with a sniff. This suggests a high right atrial pressure of 15 mm Hg. Pericardium/ Pleura There is no pericardial effusion. There is no pleural effusion. MMode/2D Measurements & Calculations LVIDd: 6.4 cm IVC diam: 1.8 cm LVIDs: 5.8 cm FS: 8.1 % IVSd: 0.94 cm LVPWd: 1.1 cm LV mckeon. diameter/BSA (cm/m^2): 3.5 LV sys. diameter/BSA (cm/m^2): 3.2 Doppler Measurements & Calculations TR max damion: 298.8 cm/sec TR max P.7 mmHg Reading Physician:04:35 PM
[2025-05-11] MEDS: MAGNESIUM OXIDE 400 MG TABLET PO (10:15)
--- NOTE | 2025-05-11 12:07 | CM.DANOTE ---
Initial DCP Assessment Visit Note Reviewed EMR and team rounds for pt's medical status and updates. Met with pt at bedside to introduce self and role, pt was found to be alert/oriented, in no distress, and very conversive. Pt resides independently with his spouse in their own home in [place]. His will plan to transport him home once he's medically stable for home d/c, unless he does not improve enough, then the plan is to transfer him to a higher level of care for cardiac catheterization. He declines any CM d/c assistance or resource needs at this time. Payor: Medicare No PCP Pt is a 70 year-old M who presented to the ED with c/o 1-week of worsening SOB. He has no prior hx of CHF or cardiac issues. He is also very active, enjoys spending time keeping busy around his home and in the yard. He shared that the SOB becomes worse with activity/exertion, as well as weakness and bilateral lower leg swelling. He was assessed by Dictating Machine Typist and was dx with acute systolic heart failure. ECHO revealed that he only had a 10-15% ejection fraction, and suspected new onset CHF with cardiac valve regurgitation. Plan was made to admit for further evaluation. Plan was made to admit for further evaluation, cardiac monitoring, diuresis, and anticoagulation. The Dictating Machine Typist also stated that once pt is diuresed, he will need transfer for heart catheterization. DCP will continue to monitor for any further evolving d/c or supportive needs during his stay. Discharge Planning/Care Management CM Discharge Assessment Start: 05/09/25 11:37 Freq: Status: Active Protocol: Document 05/11/25 11:59 DPL (Rec: 05/11/25 12:07 DPL [id number]) Discharge Planning Assessment Assigned Discharge MARAH Srinivasan Leather Seasoner Insurance Medicare Advance Directives? No History Provided By Patient,Medical Record Has Patient been No admitted in last 30 days? Prior Living House Arrangements Household Members spouse Type of Drives own vehicle transporation used prior to admit Independent with ADL Yes 's Is patient alert and Yes oriented? Caregiver for No Another Comment No AD at baseline. Comment No identified home d/c needs at this time. Barriers to No Discharge Discharge Plan Home Referrals Initiated None needed Whiteboard Updated Yes in Patient Room with name and ext. # of Stained Glass Joiner Review Status In Process Please Provide Date 05/11/25 Initial DC Assessment Was Performed
[2025-05-11] MEDS: FUROSEMIDE 40 MG/4 ML VIAL IV ×2 (12:30)
[2025-05-11] MEDS: MELATONIN 3 MG TABLET 6 MG PO (20:10)
[2025-05-12] VITALS (12 sets, daily range): BP systolic 94–132; BP diastolic 64–99; PULSE 64–101; RESP 16–20; TEMP 36.3–36.9; O2SAT 94–99
[2025-05-12] MEDS: FUROSEMIDE 40 MG/4 ML VIAL IV ×3 (00:53→21:39)
[2025-05-12 06:50] LABS: Alanine Aminotransferase 468 IU/L (<50); Albumin 3.3 g/dL (3.5-5.0); Albumin Globulin Ratio 1.1 (1.0-2.8); Alkaline Phosphatase 108 U/L (38-126); Blood Urea Nitrogen 32 mg/dL (9-20); Calcium 8.4 mg/dL (8.4-10.2); Carbon Dioxide 26 mmol/L (22-32); Chloride 94 mmol/L (98-107); Estimated Glomerular Filt Rate > 60 mL/min (>60); Globulin 2.9 g/dL (1.7-4.1); Glucose 110 mg/dL (70-99); HEMOLYSIS < 15 (0-50); Potassium 3.7 mmol/L (3.4-5.1); Sodium 128 mmol/L (137-145); Total Protein 6.2 g/dL (6.3-8.2)
--- NOTE | 2025-05-12 09:29 | P.PN_ITS ---
Subjective Subjective Date Patient Seen: 05/12/25 Time Patient Seen: 09:29 Interval history: 70-year-old man who works in the yard regularly. Patient admitted hospital above symptoms and was diagnosed with severe systolic dysfunction ejection fraction of 10-15% moderate to severe MR severe tricuspid regurgitation. Patient was started on guideline directed medical therapy with spironolactone- aldosterone antagonist, Lasix, losartan. al ? 850 / 850 ml 950 / 950 ml 250 / 250 ml 240 / 240 ml Output Total ? ? 850 / 850 ml 3500 / 3500 ml 600 / 600 ml Balance ? 850 / 850 ml 100 / 100 ml -3250 / -3250 ml -360 / -360 ml Urine Output (Average ml/kg/hr) ? ? 0.50 (ml/kg/hr) 2.07 (ml/kg/hr) 0.36 (ml/kg/hr) Overall no signficant change since last exam. Exam Vital Signs (past 8 hours): - 05/12/25 04:00 05/12/25 04:00 05/12/25 07:56 Temperature 97.9 F 97.9 F Pulse Rate 99 H 64 Respiratory Rate 16 20 Blood Pressure 99/73 132/72 Pulse Oximetry 96 96 99 Oxygen Delivery Method Room Air Oxygen Flow Rate 0 Oxygen Delivery Method Room Air Oxygen Flow Rate 0 Const General: cooperative and healthy appearing Other: Frequent cough Eyes General: appearance normal, both eyes and all related structures Neck Neck: normal visual inspection Other: JVD to angle of mandible Resp Effort & Inspection: normal respiratory effort and able to speak in complete sentences Auscultation: rales Other: Diffuse both lungs upper chest. Cardio Rate: regular rate Rhythm: regular rhythm Heart Sounds: murmur GI Inspection: normal to inspection Back/Spine/Pelvis Back: normal to inspection Thoracic/Lumbar Spine: thoracic and lumbar spine normal to inspection Skin General: no rashes or lesions noted Neuro General: patient oriented x3 Psych Appearance: grossly normal Objective Labs 05/09/25 03:30 05/12/25 05:27 Labs: Laboratory Results - last 24 hr 05/12/25 05:27 Sodium 128 L Potassium 3.7 Chloride 94 L Carbon Dioxide 26 BUN 32 H Creatinine 1.15 Estimated GFR > 60 BUN/Creatinine Ratio 27.8 H Glucose 110 H Calcium 8.4 Total Bilirubin 1.4 H AST 233 H ALT 468 H Alkaline Phosphatase 108 Total Protein 6.2 L Albumin 3.3 L Globulin 2.9 Albumin/Globulin Ratio 1.1 [facility] Medical History Acute systolic heart failure Social History household members: spouse 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 and other other: Gardening Smoking Status: Never smoker alcohol intake: current during the past year weight has: remained stable well-balanced diet: daily or most days Assessment & Plan Assessment and plan (1) Acute systolic heart failure: Status: Acute (2) Pulmonary artery thrombosis: Status: Acute (3) Tricuspid valve regurgitation: Qualifiers: Cardiac valve disease etiology: etiology unspecified Qualified Code(s): I07.1 - Rheumatic tricuspid insufficiency Status: Acute (4) Mitral regurgitation: Qualifiers: Cardiac valve disease etiology: nonrheumatic Qualified Code(s): I34.0 - Nonrheumatic mitral (valve) insufficiency Status: Acute (5) Elevated LFTs: Status: Acute Plan Lasix 40mg IV Q8h Mg 400mg PO daily KCL 20meq PO daily Coreg 6.25mg PO twice daily. Called the labor service representative at [facility]. No response so far. Discuss the DNR status with the patient. Life Vest spoke to NAOMY Gibbons [phone] Assessment & Plan narrative: 70-year-old male with no significant past medical history presented to the hospital with one-week history of exertional shortness of breath progressively worse with symptoms at rest orthopnea and PND and leg swelling. He was admitted through the emergency room and started on losartan, Lasix, spironolactone after initial echocardiogram revealed ejection fraction of 10-15% dilated LV, dilated RV, dilated right ventricular outflow tract, dilated pulmonary artery, severe tricuspid regurgitation, moderate to severe mitral regurgitation. I personally reviewed the repeat echocardiogram EF 10-15%. 1. Acute systolic heart failure: Acute presentation of shortness of breath with severe systolic dysfunction of unclear etiology at this point. Possible etiologies include coronary artery disease, primary mitral regurgitation, primary tricuspid regurgitation. Patient needs additional workup however given his unstable hemodynamics I would like to start him on diuretics and afterload reducing medications. He was started on losartan, Spironolactone, Lasix. He is symptomatically feeling better from yesterday. AST and ALT are now improving. AST 238, ALT 488 today. Telemetry Sinus rhythm, monomorphic PVC. No NSVT or VT reported. Increase the dose of Lasix IV q8h, Mg 400,g PO daily and KCL 20meq PO daily, CMP, Mg daily. I/O charting. 2. Mitral regurgitation: Both primary and secondary mitral regurgitation are suspected. His LV is severely dilated perhaps his mitral regurgitation is due to annular dilatation. 3. Tricuspid regurgitation 4. Risk of sudden cardiac discuss with the patient. Life vest discussed with the patient. Pt is going to need Cardiac catheterization. Perhaps a transfer to [facility] or an outpatient. Time-Based Coding :: [TOTAL MINUTES] spent with patient and on the chart (including review of chart, obtaining history, exam, reviewing outside data, placing orders, documenting exam and treatment plan, and counseling patient) on [DATE]. Quality VTE Deep Vein Thrombosis/Pulmonary Embolism Present on Admission: No
[2025-05-12] MEDS: MAGNESIUM OXIDE 400 MG TABLET PO (09:31)
[2025-05-12] MEDS: LOSARTAN 25 MG TABLET 12.5 MG PO (09:31)
[2025-05-12] MEDS: HEPARIN 5,000 UNIT/ML VIAL 5000 UNIT SUBCUT ×2 (09:35→21:34)
[2025-05-12] MEDS: SODIUM CHLORIDE 0.9% FLUSH 10 ML IV ×2 (09:40→21:39)
--- NOTE | 2025-05-12 12:50 | P.PN_ITS ---
Subjective Subjective Interval history: Summary: He was admitted with evidence of volume overload and found to have a severely depressed LV EF on echo. He has been followed by Cardiology, and has been diuresed. He was improving in his off oxygen. He was minimal leg edema but remains hyponatremia. S: He feels much better, good energy. He was bored being stuck in the hospital. O: NAD, alert and oriented. Fluent speech. Lungs are clear, normal rate and effort. Heart is regular, no murmur gallop or rub. Abdomen is soft, non distended. Extremities are free of edema. A/P: 1. Severe dilated cardiomyopathy ejection fraction 10-15% with 2. moderate tricuspid regurgitation with severe right-sided congestive heart failure and severe tricuspid regurgitation 3. Pulmonary artery thrombosis. 4. Congestive hepatopathy PLAN: -continue IV diuresis and up titration of beta blockade. Increasing Lasix to Q 8 hours. -Added spironolactone. -request made for life vest. -the plan is to transfer to [facility] for coronary angiogram tomorrow and then bring back to this hospital. Exam Vital Signs (past 8 hours): - 05/12/25 07:56 05/12/25 08:00 05/12/25 11:00 Temperature 97.9 F 97.7 F Pulse Rate 64 80 Respiratory Rate 20 18 Blood Pressure 132/72 94/68 Pulse Oximetry 99 99 96 Oxygen Delivery Method Room Air Oxygen Delivery Method Room Air Oxygen Flow Rate 0 Objective Labs 05/09/25 03:30 05/12/25 05:27 Labs: Laboratory Results - last 24 hr 05/12/25 05:27 Sodium 128 L Potassium 3.7 Chloride 94 L Carbon Dioxide 26 BUN 32 H Creatinine 1.15 Estimated GFR > 60 BUN/Creatinine Ratio 27.8 H Glucose 110 H Calcium 8.4 Total Bilirubin 1.4 H AST 233 H ALT 468 H Alkaline Phosphatase 108 Total Protein 6.2 L Albumin 3.3 L Globulin 2.9 Albumin/Globulin Ratio 1.1 [facility] Medical History Acute systolic heart failure Social History household members: spouse Previous occupational history: [employer] leisure activities: exercise and other other: Gardening Smoking Status: Never smoker alcohol intake: current during the past year weight has: remained stable well-balanced diet: daily or most days Assessment & Plan Time-Based Coding :: [TOTAL MINUTES] spent with patient and on the chart (including review of chart, obtaining history, exam, reviewing outside data, placing orders, documenting exam and treatment plan, and counseling patient) on [DATE]. Quality VTE Deep Vein Thrombosis/Pulmonary Embolism Present on Admission: No
--- NOTE | 2025-05-12 13:13 | CM.DPC ---
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 Per RN, supportive family have been visiting off and on. No concerns noted at this time. Plan: SW to follow for plan of hospital transfer for higher level of Cardiac care needs. MARAH Waldrop
[2025-05-12] MEDS: BENZONATATE 100 MG CAPSULE PO (14:02)
[2025-05-12] MEDS: MELATONIN 3 MG TABLET 6 MG PO (21:35)
[2025-05-13] VITALS (8 sets, daily range): BP systolic 109–117; BP diastolic 68–82; PULSE 64–82; RESP 17–22; TEMP 36.4–37.2; O2SAT 95–99
[2025-05-13] MEDS: FUROSEMIDE 40 MG/4 ML VIAL IV ×2 (05:24→21:46)
[2025-05-13 06:35] LABS: Alanine Aminotransferase 590 IU/L (<50); Albumin 3.9 g/dL (3.5-5.0); Albumin Globulin Ratio 1.2 (1.0-2.8); Alkaline Phosphatase 155 U/L (38-126); Blood Urea Nitrogen 41 mg/dL (9-20); Calcium 9.1 mg/dL (8.4-10.2); Carbon Dioxide 25 mmol/L (22-32); Chloride 89 mmol/L (98-107); Estimated Glomerular Filt Rate 50 mL/min (>60); Globulin 3.2 g/dL (1.7-4.1); Glucose 127 mg/dL (70-99); HEMOLYSIS 23 (0-50); Magnesium 2.0 mg/dL (1.6-2.3); Potassium 4.7 mmol/L (3.4-5.1); Sodium 127 mmol/L (137-145); Total Protein 7.1 g/dL (6.3-8.2)
--- NOTE | 2025-05-13 07:38 | PM.PN.1 ---
Subjective Subjective Interval history: Hospital Course: 05/09: Patient was admitted with acute heart failure with dyspnea and pulmonary edema. The patient was diuresed. Initial ECG revealed sinus rhythm with a left bundle branch block. Chest x-ray revealed pleural effusions pulmonary edema. Troponin 0.07. Echo revealed an EF of 10-15%. Cardiology was consulted. 05/10: Slow improvement with diuresis. 05/11: Slow improvement with diuresis. 05/12: Slow improvement with diuresis. Plan for transfer to [facility] for coronary angiogram to rule out obstructive CAD today. Anticipate transfer back to this hospital. S: Feeling better, no chest pain. No dyspnea. O: NAD, alert and oriented. Fluent speech. Lungs are clear, normal rate and effort. Heart is regular, no murmur gallop or rub. Abdomen is soft, non distended. Extremities are free of edema. ECHO: 1) Severely enlarged left ventricle with severely reduced systolic function (EF 10-15%). 2) Moderately enlarged right ventricle with mildly reduced function. 3) There is moderate functional mitral regurgitation. 4) There is severe tricuspid regurgitation 5) The right ventricular systolic pressure is estimated to be at least 69 mmHg based on an estimated right atrial pressure of 15 mm Hg. A/P: 1. Severe dilated cardiomyopathy ejection fraction 10-15% with 2. moderate tricuspid regurgitation with severe right-sided congestive heart failure and severe tricuspid regurgitation 3. Pulmonary artery thrombosis. 4. Congestive hepatopathy PLAN: -continue IV diuresis and up titration of beta blockade. Increasing Lasix to Q 8 hours. -Added spironolactone. -request made for life vest in motion. -the plan is to transfer to [facility] for coronary angiogram tomorrow and then bring back to this hospital. -Will fax papers to [employer] for LifeVest. JULIANE: 1-2 days. Exam Vital Signs (past 8 hours): - 05/13/25 00:00 05/13/25 04:00 05/13/25 05:00 Temperature 98.0 F Pulse Rate 82 Respiratory Rate 17 Blood Pressure 117/77 Pulse Oximetry 96 96 99 Oxygen Delivery Method Room Air Room Air Oxygen Flow Rate 0 Oxygen Delivery Method Room Air Oxygen Flow Rate 0 Objective Labs 05/09/25 03:30 05/13/25 05:49 Labs: Laboratory Results - last 24 hr 05/13/25 05:49 Sodium 127 L Potassium 4.7 Chloride 89 L Carbon Dioxide 25 BUN 41 H Creatinine 1.47 H Estimated GFR 50 L BUN/Creatinine Ratio 27.9 H Glucose 127 H Calcium 9.1 Magnesium 2.0 Total Bilirubin 2.1 H AST 311 H ALT 590 H Alkaline Phosphatase 155 H Total Protein 7.1 Albumin 3.9 Globulin 3.2 Albumin/Globulin Ratio 1.2 PFSH Medical History Acute systolic heart failure Social History household members: spouse 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 Quality VTE Deep Vein Thrombosis/Pulmonary Embolism Present on Admission: No
[2025-05-13] MEDS: BENZONATATE 100 MG CAPSULE PO (09:12)
[2025-05-13] MEDS: HEPARIN 5,000 UNIT/ML VIAL 5000 UNIT SUBCUT (09:16)
[2025-05-13] MEDS: LOSARTAN 25 MG TABLET 12.5 MG PO (09:16)
[2025-05-13] MEDS: MAGNESIUM OXIDE 400 MG TABLET PO (09:17)
[2025-05-13] MEDS: SODIUM CHLORIDE 0.9% FLUSH 10 ML IV ×2 (09:22→21:47)
--- NOTE | 2025-05-13 10:19 | PC.NURSE ---
Per orders patient has been NPO at midnight except for meds. RN spoke with MD Cavazos and MD Sanchez. 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 He is A&OX4, VSS, SR w/ BBB on telemetry. Report is called to Karlene OBRIEN and he is transported via gurney at 1020 a.m. with ACLS.
--- NOTE | 2025-05-13 12:58 | CM.DPNOTE ---
DCP Continued: Reviewed EMR and team rounds for pt?s medical status. Per hospitalist, pt to transfer to [facility] for cardiac cath then transfer back to [facility]. If cath successful, possible discharge on Fri, 05/13. Following for possible home health referral if necessary. Plan: Anticipating dc home with family when pt returns from [facility], dc on 05/13 or 05/14. CM Team will continue to follow for coordination of discharge plans. GWYN Mathias
[2025-05-13] MEDS: MELATONIN 3 MG TABLET 6 MG PO (21:45)
[2025-05-14] VITALS (13 sets, daily range): BP systolic 98–111; BP diastolic 65–71; PULSE 73–80; RESP 14–20; TEMP 35.8–37.6; O2SAT 93–97
[2025-05-14 06:05] LABS: Blood Urea Nitrogen 49 mg/dL (9-20); Calcium 8.3 mg/dL (8.4-10.2); Carbon Dioxide 24 mmol/L (22-32); Chloride 90 mmol/L (98-107); Estimated Glomerular Filt Rate 50 mL/min (>60); Glucose 131 mg/dL (70-99); HEMOLYSIS 18 (0-50); Magnesium 2.0 mg/dL (1.6-2.3); Potassium 4.5 mmol/L (3.4-5.1); Sodium 124 mmol/L (137-145)
[2025-05-14] MEDS: FUROSEMIDE 40 MG/4 ML VIAL IV ×2 (06:14→14:22)
[2025-05-14] MEDS: HEPARIN 5,000 UNIT/ML VIAL 5000 UNIT SUBCUT ×2 (09:24→20:10)
[2025-05-14] MEDS: MAGNESIUM OXIDE 400 MG TABLET PO (09:26)
[2025-05-14] MEDS: LOSARTAN 25 MG TABLET 12.5 MG PO (09:26)
[2025-05-14] MEDS: SODIUM CHLORIDE 0.9% FLUSH 10 ML IV ×2 (09:30→20:11)
--- NOTE | 2025-05-14 13:19 | P.PN_ITS ---
Subjective Subjective Date Patient Seen: 05/14/25 Time Patient Seen: 13:19 Interval history: 70-year-old male admitted to the hospital with diagnosis of acute systolic heart failure severe tricuspid regurgitation moderate to severe mitral regurgitation ejection fraction of 10-15% hypotension progressive shortness of breath respiratory distress hemoptysis and cough. Echocardiogram was performed which revealed ejection fraction of 15% with severe TR and MR. Since admission patient was started on beta blockers, losartan, loop diuretics, aldosterone antagonist as part of guideline directed medical therapy. Patient underwent complete heart catheterization yesterday. Coronary angiography revealed angiographiclly normal coronaries. Right heart hemodynamic studies revealed cardiac output of 2.0 liters/minute with a cardiac index of 1 point 1 8. The pulmonary capillary wedge pressure was 25 mmHg. Mean PA pressure was 31 mmHg. Pulmonary vascular resistance was 2 schultz unit. Exam Vital Signs (past 8 hours): - 05/14/25 08:00 05/14/25 08:00 05/14/25 09:25 Temperature 97.4 F L Pulse Rate 80 80 Respiratory Rate 15 Blood Pressure 102/70 102/70 Pulse Oximetry 97 97 Oxygen Delivery Method Room Air Oxygen Flow Rate 0 0 05/14/25 09:26 Temperature Pulse Rate 80 Respiratory Rate Blood Pressure 102/70 Pulse Oximetry Oxygen Delivery Method Oxygen Flow Rate Oxygen Delivery Method Room Air Oxygen Flow Rate 0 Const General: cooperative Orientation: oriented x3 [facility] Head: normal to inspection Eyes General: appearance normal, both eyes and all related structures Neck Neck: normal visual inspection Chest Chest: normal inspection of the chest Resp Effort & Inspection: normal respiratory effort Auscultation: rales Other: Improved from yesterday. Cardio Palpation: normal PMI Rate: regular rate Rhythm: regular rhythm Heart Sounds: S1 normal and S2 normal Other: soft systolic murmur. Back/Spine/Pelvis Back: normal to inspection Skin General: no rashes or lesions noted Neuro General: patient alert, patient awake and patient oriented x3 Objective ECG Impression: NSR with LBBB. QRS duration of 168msec Imaging Echo limited: My impression: The ejection fraction is estimated to be 10-15%. There has been no significant change since the previous exam. 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: exercise and other other: Gardening Smoking Status: Never smoker alcohol intake: current during the past year weight has: remained stable well-balanced diet: daily or most days Assessment & Plan Assessment and plan (1) Acute systolic heart failure: Status: Acute (2) Pulmonary artery thrombosis: Status: Acute (3) Tricuspid valve regurgitation: Qualifiers: Cardiac valve disease etiology: etiology unspecified Qualified Code(s): I07.1 - Rheumatic tricuspid insufficiency Status: Acute (4) Mitral regurgitation: Qualifiers: Cardiac valve disease etiology: nonrheumatic Qualified Code(s): I34.0 - Nonrheumatic mitral (valve) insufficiency Status: Acute (5) Elevated LFTs: Status: Acute Plan Obtain EKG now to assess the duration of QRS interval. Consideration for advance cardiac therapies BIV-ICD-SPOTTER DRIVER. Repeat CBC and CMP for tomorrow morning Continue with input output charting I will follow up with LifeVest Echocardiogram on Friday Assessment & Plan narrative: 70-year-old male with no significant past medical history presented to the hospital with one-week history of exertional shortness of breath progressively worse with symptoms at rest orthopnea and PND and leg swelling. He was admitted through the emergency room and started on losartan, Lasix, spironolactone after initial echocardiogram revealed ejection fraction of 10-15% dilated LV, dilated RV, dilated right ventricular outflow tract, dilated pulmonary artery, severe tricuspid regurgitation, moderate to severe mitral regurgitation. 1. Acute systolic heart failure: I/O charting. Cardiac hemodynamics data in the chart as above. Spontaneous echo contrast. 2. Mitral regurgitation: Both primary and secondary mitral regurgitation are suspected. His LV is severely dilated perhaps his mitral regurgitation is due to annular dilatation. 3. Tricuspid regurgitation with dilated RV. 4. Risk of sudden cardiac discuss with the patient. Life vest discussed with the patient. Awaiting response from [employer] rep. 5. Pre renal azotemia and Elevated transaminases. Will monitor. Time-Based Coding :: [TOTAL MINUTES] spent with patient and on the chart (including review of chart, obtaining history, exam, reviewing outside data, placing orders, documenting exam and treatment plan, and counseling patient) on [DATE]. Quality VTE Deep Vein Thrombosis/Pulmonary Embolism Present on Admission: No
--- NOTE | 2025-05-14 13:32 | EKG_ITS ---
[facility] [address] [place] [address] Test Date: 2025-05-14 Pat Name: Benedicto Andrea Department: Room: 212 Gender: Male Nurse Research: : 1955 Requested By: Order Number: [id number] Reading MD: Gage Cueva MD Measurements Intervals [place] Rate: 73 P: 60 NC: 176 QRS: -19 QRSD: 168 T: 143 QT: 466 QTc: 513 Interpretive Statements Normal sinus rhythm Left atrial enlargement Left bundle branch block NO SIGNIFICANT CHANGE FROM PRIOR TRACING Electronically Signed On 05-16-2025 7:48:06 PDT by Gage Cueva MD
--- NOTE | 2025-05-14 14:53 | CM.DPNOTE ---
Addendum entered by MARAH Taveras 05/14/25 15:22: STEAMER OPERATOR able to speak with Tessa from [employer]. p [phone]. per Tessa, the hospital agreement form is just for the hospital to potentially be financially responsible for the first month. This is to give the company time to on their back end get insurance authorization and then would reimburse the hospital. per Tessa, it was not denied it's just that pt does not have Medicare part B. if he were to have part B that would be covered. if he does end up getting part B the hospital agreement form can be voided. Tessa reports that case work aide can sign for it. Tessa says they cannot send out a rep to have pt fitted for the life vest without the form signed and returned and that could delay discharge. reiterates that this would only be for one month. if needed longer and does not have Part B reinstated, their company works with pt/has some yecenia funding for financial assistance as needed. the hospital would not be responsible after one month. due to the 1) high cost and 2) this STEAMER OPERATOR never dealing with this before and 3) pt's likeliness to remain until 05/18, this STEAMER OPERATOR feels that it would be more appropriate for managerial/PET NUTRITION SPECIALIST approval prior to signing off. will address Friday when full staff in house. Original Note: DCP note STEAMER OPERATOR reviewed EMR Dr. Sanchez had previously left life vest form in our CM folder for completion for pt. stating that the hospital agrees to pay $3675 for the DME. per provider in morning rounds , could dc today if vest secured. STEAMER OPERATOR called life vest. their team reports we got this form because pt's claim was denied. fraud manager in charge of why that was denied is tony p [phone]. STEAMER OPERATOR lvm with Tony. response pending. STEAMER OPERATOR contacted fraud manager Zarina, advised to call admin second watch sergeant for further guidance. Spoke with PET NUTRITION SPECIALIST Yvette, plans to come into hospital to review. STEAMER OPERATOR emailed Yvette form. Per Hydroelectric Machinery Mechanic later on in day, plans to keep pt for another few days. no longer plans to dc today. STEAMER OPERATOR updated Yvette PET NUTRITION SPECIALIST that expedited request no longer needed. appreciate her willingness to follow and advise P: anticipate eventual dc home. BARRIER is life vest, f/u for reason for denial and coordinate DME from there likely Friday MARAH Taveras
--- NOTE | 2025-05-14 16:30 | P.PN_ITS ---
Subjective Subjective Interval history: 70-year-old male with acute on chronic systolic congestive heart failure with ejection fraction of 15%, severe tricuspid regurgitation, moderate right ventricular enlargement with decreased function, mitral regurgitation, left bundle branch block, and pulmonary hypertension. Patient transferred to [facility] yesterday for a an angiogram. It revealed no evidence of obstructive coronary disease. He was asking today if he could go home. He is presently waiting for a LifeVest to be approved and delivered before going home. He is high risk for VT/VFib given the severity of his cardiomyopathy. Dr. Phillips has also explained to him that he wants to continue diuresing him for at least 4-5 more days. Patient admits that he continues to have some dyspnea. He denies chest pain. Exam Vital Signs (past 8 hours): - 05/14/25 09:25 05/14/25 09:26 05/14/25 12:00 Temperature Pulse Rate 80 80 Respiratory Rate Blood Pressure 102/70 102/70 Pulse Oximetry 96 Oxygen Delivery Method Room Air Oxygen Flow Rate 0 05/14/25 15:26 Temperature 97.2 F L Pulse Rate 77 Respiratory Rate 15 Blood Pressure 111/65 Pulse Oximetry 97 Oxygen Delivery Method Oxygen Flow Rate 0 Oxygen Delivery Method Room Air Oxygen Flow Rate 0 Narrative Exam Narrative: GEN: Middle-aged male, Alert and oriented x 3, NAD HEENT:NC, Face symmetric CHEST: Respiratory excursions symmetric, bibasilar crackles, otherwise CTAB CV: RRR, no M/R/G ABD: Soft, NT/ND, BT present in all 4 quadrants, no organomegaly or masses EXTR: warm, well perfused, no C/C/E SKIN: warm and dry, no rash NEURO: Alert and oriented x 3, nonfocal Objective Labs 05/09/25 03:30 05/14/25 05:00 Labs: Laboratory Results - last 24 hr 05/14/25 05:00 Sodium 124 L Potassium 4.5 Chloride 90 L Carbon Dioxide 24 BUN 49 H Creatinine 1.49 H Estimated GFR 50 L BUN/Creatinine Ratio 32.9 H Glucose 131 H Calcium 8.3 L Magnesium 2.0 PFSH Medical History Acute systolic heart failure Social History household members: spouse 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 Acute versus acute on chronic severe systolic (biventricular heart failure with severe left and mild right dysfunction) congestive heart failure No evidence of obstructive coronary disease on heart catheterization. EF is 15%. He continues on furosemide for diuresis. He had a net diuresis of 3.25 L on May 11, 440 mL on May 12, yesterday's output could not be monitored as he was at an outside hospital for part of the day yesterday. He is becoming progressively more hyponatremic with his sodium level down today. His BUN has also crept up from 36-49. Creatinine is up from 1.1 to 1.49 in the last few days. We likely will need to back off on his diuresis to allow for him to equilibrate intravascularly. We will recheck labs in the morning. Due to the severity of his cardiomyopathy, LifeVest has been recommended. We are working on getting that ordered through social worker masters. He will require the LifeVest upon leaving the hospital and will continue to require until he can have an AICD placed 2. NOVA Again likely secondary to diuresis. Will decrease furosemide from 40 mg IV Q 8- 40 mg IV q.12. Will recheck labs in the morning. 3. Severe tricuspid regurgitation Likely not a candidate for valve replacement given the severity of his cardiomyopathy. 4. Hyponatremia As noted, his sodium has trended down. We will reduce furosemide to try to decrease the impact of his diuresis on his sodium level. Code status Full Prophylaxis On heparin Disposition Ongoing acute care hospitalization for diuresis and stabilization Time-Based Coding :: [TOTAL MINUTES] spent with patient and on the chart (including review of chart, obtaining history, exam, reviewing outside data, placing orders, documenting exam and treatment plan, and counseling patient) on [DATE]. Quality VTE Deep Vein Thrombosis/Pulmonary Embolism Present on Admission: No
[2025-05-14] MEDS: MELATONIN 3 MG TABLET 6 MG PO (20:10)
[2025-05-15] VITALS (12 sets, daily range): BP systolic 95–114; BP diastolic 71–86; PULSE 74–84; RESP 14–20; TEMP 35.4–36.6; O2SAT 90–95
[2025-05-15] MEDS: FUROSEMIDE 40 MG/4 ML VIAL IV ×3 (00:56→23:03)
[2025-05-15 05:45] LABS: Add Manual Diff / Slide Review NO; Hematocrit 42.1 % (41-53); Hemoglobin 14.4 g/dL (13.5-17.5); Lymphocytes Absolute Auto 1400 /uL (1100-4500); Mean Corpuscular HGB Conc 34.2 % (30-36); Mean Corpuscular Hemoglobin 32.2 PG (26-34); Mean Corpuscular Volume 94.2 fL (80-100); Platelet Count 189 X10^3/uL (150-400)
[2025-05-15 05:54] LABS: Alanine Aminotransferase 298 IU/L (<50); Albumin 3.4 g/dL (3.5-5.0); Albumin Globulin Ratio 1.1 (1.0-2.8); Alkaline Phosphatase 194 U/L (38-126); Blood Urea Nitrogen 48 mg/dL (9-20); Calcium 8.2 mg/dL (8.4-10.2); Carbon Dioxide 24 mmol/L (22-32); Chloride 91 mmol/L (98-107); Estimated Glomerular Filt Rate 56 mL/min (>60); Globulin 3.2 g/dL (1.7-4.1); Glucose 132 mg/dL (70-99); HEMOLYSIS < 15 (0-50); Potassium 3.9 mmol/L (3.4-5.1); Sodium 125 mmol/L (137-145); Total Protein 6.6 g/dL (6.3-8.2)
[2025-05-15] MEDS: MAGNESIUM OXIDE 400 MG TABLET PO (09:23)
[2025-05-15] MEDS: LOSARTAN 25 MG TABLET 12.5 MG PO (09:24)
[2025-05-15] MEDS: SODIUM CHLORIDE 0.9% FLUSH 10 ML IV ×2 (09:26→20:56)
[2025-05-15] MEDS: HEPARIN 5,000 UNIT/ML VIAL 5000 UNIT SUBCUT ×2 (09:26→20:55)
--- NOTE | 2025-05-15 14:01 | PM.PN.1 ---
Subjective Subjective Date Patient Seen: 05/15/25 Time Patient Seen: 14:02 Interval history: 70-year-old male with no significant past medical history presented to the hospital with one-week history of exertional shortness of breath progressively worse with symptoms at rest orthopnea and PND and leg swelling. He was admitted through the emergency room and started on losartan, Lasix, spironolactone after initial echocardiogram revealed ejection fraction of 10-15% dilated LV, dilated RV, dilated right ventricular outflow tract, dilated pulmonary artery, severe tricuspid regurgitation, moderate to severe mitral regurgitation. Interval history: No significant interval change. The patient is compliant medications. Exam Vital Signs (past 8 hours): - 05/15/25 08:00 05/15/25 08:59 05/15/25 09:22 Temperature 97.2 F L Pulse Rate 78 78 Respiratory Rate 16 Blood Pressure 109/82 109/82 Pulse Oximetry 95 92 Oxygen Delivery Method Room Air Oxygen Flow Rate 0 05/15/25 12:00 Temperature Pulse Rate Respiratory Rate Blood Pressure Pulse Oximetry 93 Oxygen Delivery Method Room Air Oxygen Flow Rate Oxygen Delivery Method Room Air Oxygen Flow Rate 0 Const General: cooperative and comfortable HENMT Head: normal to inspection Face and sinus: normal facial exam Eyes General: appearance normal, both eyes and all related structures Neck Neck: normal visual inspection Chest Chest: normal inspection of the chest Resp Effort & Inspection: able to speak in complete sentences Other: crackles are much improved from yesterday. Still present though. Cardio Palpation: normal PMI Rhythm: regular rhythm Heart Sounds: S1 normal and S2 normal GI Inspection: normal to inspection Back/Spine/Pelvis Back: normal to inspection Skin General: no rashes or lesions noted Neuro General: patient alert and patient oriented x3 Objective ECG Impression: NSR with left bundle branch block Labs 05/15/25 06:00 05/15/25 06:00 Labs: Laboratory Results - last 24 hr 05/15/25 06:00 WBC 9.4 RBC 4.47 L Hgb 14.4 Hct 42.1 MCV 94.2 MCH 32.2 MCHC 34.2 RDW 13.7 Plt Count 189 Neut % (Auto) 73.1 Lymph % (Auto) 14.8 L [place] % (Auto) 11.6 Eos % (Auto) 0.2 L Baso % (Auto) 0.3 Neut # (Auto) 6900 Lymph # (Auto) 1400 [place] # (Auto) 1100 H Eos # (Auto) 0 Baso # (Auto) 0 Sodium 125 L Potassium 3.9 Chloride 91 L Carbon Dioxide 24 BUN 48 H Creatinine 1.34 H Estimated GFR 56 L BUN/Creatinine Ratio 35.8 H Glucose 132 H Calcium 8.2 L Total Bilirubin 1.3 AST 141 H ALT 298 H Alkaline Phosphatase 194 H Total Protein 6.6 Albumin 3.4 L Globulin 3.2 Albumin/Globulin Ratio 1.1 [facility] Medical History Acute systolic heart failure Social History household members: spouse 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: exercise and other other: Gardening Smoking Status: Never smoker alcohol intake: current during the past year weight has: remained stable well-balanced diet: daily or most days Assessment & Plan Assessment and plan (1) Acute systolic heart failure: Status: Acute (2) Tricuspid valve regurgitation: Qualifiers: Cardiac valve disease etiology: etiology unspecified Qualified Code(s): I07.1 - Rheumatic tricuspid insufficiency Status: Acute (3) Mitral regurgitation: Qualifiers: Cardiac valve disease etiology: nonrheumatic Qualified Code(s): I34.0 - Nonrheumatic mitral (valve) insufficiency Status: Acute (4) Elevated LFTs: Status: Acute Plan 70-year-old male with no significant past medical history presented to the hospital with one-week history of exertional shortness of breath progressively worse with symptoms at rest orthopnea and PND and leg swelling. He was admitted through the emergency room and started on losartan, Lasix, spironolactone after initial echocardiogram revealed ejection fraction of 10-15% dilated LV, dilated RV, dilated right ventricular outflow tract, dilated pulmonary artery, severe tricuspid regurgitation, moderate to severe mitral regurgitation. 1. Acute systolic heart failure: I/O charting. Cardiac hemodynamics data in the chart as above. Spontaneous echo contrast. 2. Mitral regurgitation: Both primary and secondary mitral regurgitation are suspected. His LV is severely dilated perhaps his mitral regurgitation is due to annular dilatation. 3. Tricuspid regurgitation with dilated RV. 4. Risk of sudden cardiac discuss with the patient. Life vest discussed with the patient. Awaiting response from [employer] rep. 5. Left bundle branch block QRS duration 164msec. Discussion about ICD vs BIV-ICD therapies. 5. Pre renal azotemia and Elevated transaminases. Will monitor. 6. Sodium was 125.The dose of lasix reduced to twice a day. 7. Awaiting Echo and lifevest tomorrow. Possible discharge tomorrow. 8. Pt is to follow up in the office. Time-Based Coding :: [TOTAL MINUTES] spent with patient and on the chart (including review of chart, obtaining history, exam, reviewing outside data, placing orders, documenting exam and treatment plan, and counseling patient) on [DATE]. Quality VTE Deep Vein Thrombosis/Pulmonary Embolism Present on Admission: No
--- NOTE | 2025-05-15 16:17 | PM.PN.1 ---
Subjective Subjective Interval history: 70-year-old male with acute on chronic systolic congestive heart failure with ejection fraction of 15%, severe tricuspid regurgitation, moderate right ventricular enlargement with decreased function, mitral regurgitation, left bundle branch block, and pulmonary hypertension. Patient transferred to [facility] yesterday for a an angiogram. It revealed no evidence of obstructive coronary disease. He was asking today if he could go home. Patient reports he is feeling about the same today as yesterday. He denies any chest pain, shortness for breath. He expresses some disbelief over the fact that he was able to do all the exercise and activity he was doing before admission without all of the protections we are now seeking for him before discharge. He expresses understanding that it is safest for him to stay in the hospital until his diuresis is maximized and the LifeVest has been arranged for him. He does state that he prefers when his isn't here hearing all of the details as she worries too much and he feels she will forget if he is not constantly wearing the vest. Exam Vital Signs (past 8 hours): - 05/15/25 08:59 05/15/25 09:22 05/15/25 12:00 Temperature 97.2 F L Pulse Rate 78 78 Respiratory Rate 16 Blood Pressure 109/82 109/82 Pulse Oximetry 92 93 Oxygen Delivery Method Room Air Oxygen Flow Rate 0 05/15/25 14:45 Temperature 96.9 F L Pulse Rate 81 Respiratory Rate 15 Blood Pressure 106/78 Pulse Oximetry 90 L Oxygen Delivery Method Oxygen Flow Rate 0 Oxygen Delivery Method Room Air Oxygen Flow Rate 0 Narrative Exam Narrative: GEN: Middle-aged male, Alert and oriented x 3, NAD HEENT:NC, Face symmetric CHEST: Respiratory excursions symmetric, coarse but CTAB CV: RRR, no M/R/G ABD: Soft, NT/ND, BT present in all 4 quadrants, no organomegaly or masses EXTR: warm, well perfused, no C/C/1+ bilateral lower extremity pitting edema SKIN: warm and dry, no rash NEURO: Alert and oriented x 3, nonfocal Objective Labs 05/15/25 06:00 05/15/25 06:00 Labs: Laboratory Results - last 24 hr 05/15/25 06:00 WBC 9.4 RBC 4.47 L Hgb 14.4 Hct 42.1 MCV 94.2 MCH 32.2 MCHC 34.2 RDW 13.7 Plt Count 189 Neut % (Auto) 73.1 Lymph % (Auto) 14.8 L [place] % (Auto) 11.6 Eos % (Auto) 0.2 L Baso % (Auto) 0.3 Neut # (Auto) 6900 Lymph # (Auto) 1400 [place] # (Auto) 1100 H Eos # (Auto) 0 Baso # (Auto) 0 Sodium 125 L Potassium 3.9 Chloride 91 L Carbon Dioxide 24 BUN 48 H Creatinine 1.34 H Estimated GFR 56 L BUN/Creatinine Ratio 35.8 H Glucose 132 H Calcium 8.2 L Total Bilirubin 1.3 AST 141 H ALT 298 H Alkaline Phosphatase 194 H Total Protein 6.6 Albumin 3.4 L Globulin 3.2 Albumin/Globulin Ratio 1.1 PFSH Medical History Acute systolic heart failure Social History household members: spouse 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 Acute versus acute on chronic severe systolic (biventricular heart failure with severe left and mild right dysfunction) congestive heart failure No evidence of obstructive coronary disease on heart catheterization. EF is 15%. He continues on furosemide for diuresis. He had a net diuresis of 3.25 L on May 11, 440 mL on May 12, not well documented May 13, 350 cc on the . Due to progressive hyponatremia with sodium down to 124 yesterday, his furosemide was changed from 40 mg IV Q 8-40 mg IV q.12. Sodium is up to 125 today. I expect it will increase again tomorrow as the change in his diuresis was not made until the early evening yesterday. Due to the severity of his cardiomyopathy, LifeVest has been recommended. We are working on getting that ordered through psychiatric social worker supervisor. He will require the LifeVest upon leaving the hospital and will continue to require until he can have an AICD placed 2. NOVA Again likely secondary to diuresis. Improved today with BUN stable at 48 and creatinine down. Continue close monitoring with diuresis. 3. Severe tricuspid regurgitation Likely not a candidate for valve replacement given the severity of his cardiomyopathy. 4. Hyponatremia As noted, his sodium is mildly improved up. Will continue to follow. Code status Full Prophylaxis On heparin Disposition Ongoing acute care hospitalization for diuresis and stabilization Time-Based Coding :: [TOTAL MINUTES] spent with patient and on the chart (including review of chart, obtaining history, exam, reviewing outside data, placing orders, documenting exam and treatment plan, and counseling patient) on [DATE]. Quality VTE Deep Vein Thrombosis/Pulmonary Embolism Present on Admission: No
--- NOTE | 2025-05-15 16:51 | PC.NURSE ---
Day note: Was notified by ICU nurse regarding 6 beat run of V tach at 1644. Notified Dr. Ortiz. Patient awake, alert, asymptomatic. NO SOB, CP, or dizziness. HR 79, BP 110/78, continue on RA 98% Discussed with patient and family importance of Fluid Restriction, dietary and PCT included in plan. Discussed importance of strict I & Os, verbalized understanding. Calls appropriately for staff assistance.
[2025-05-15 17:55] LABS: Blood Urea Nitrogen 51 mg/dL (9-20); Calcium 8.2 mg/dL (8.4-10.2); Carbon Dioxide 24 mmol/L (22-32); Chloride 90 mmol/L (98-107); Estimated Glomerular Filt Rate 57 mL/min (>60); Glucose 160 mg/dL (70-99); HEMOLYSIS 20 (0-50); Magnesium 2.0 mg/dL (1.6-2.3); Potassium 3.8 mmol/L (3.4-5.1); Sodium 124 mmol/L (137-145)
[2025-05-15] MEDS: MELATONIN 3 MG TABLET 6 MG PO (20:56)
[2025-05-16] VITALS (9 sets, daily range): BP systolic 100–105; BP diastolic 72–77; PULSE 76–84; RESP 15–20; TEMP 36.2–36.7; O2SAT 90–96
[2025-05-16 06:07] LABS: Alanine Aminotransferase 245 IU/L (<50); Albumin 3.3 g/dL (3.5-5.0); Albumin Globulin Ratio 1.0 (1.0-2.8); Alkaline Phosphatase 249 U/L (38-126); Blood Urea Nitrogen 47 mg/dL (9-20); Calcium 8.3 mg/dL (8.4-10.2); Carbon Dioxide 27 mmol/L (22-32); Chloride 92 mmol/L (98-107); Estimated Glomerular Filt Rate 58 mL/min (>60); Globulin 3.4 g/dL (1.7-4.1); Glucose 123 mg/dL (70-99); HEMOLYSIS 16 (0-50); Magnesium 2.1 mg/dL (1.6-2.3); Potassium 3.7 mmol/L (3.4-5.1); Sodium 125 mmol/L (137-145); Total Protein 6.7 g/dL (6.3-8.2)
--- NOTE | 2025-05-16 07:46 | PM.PN.1 ---
Subjective Subjective Interval history: Awaiting LifeVest. S: O: NAD, alert and oriented. Fluent speech. Lungs are clear, normal rate and effort. Heart is regular, no murmur gallop or rub. Abdomen is soft, non distended. Extremities are free of edema. A/P: A/P: 1. Severe dilated cardiomyopathy ejection fraction 10-15% with 2. moderate tricuspid regurgitation with severe right-sided congestive heart failure and severe tricuspid regurgitation 3. Pulmonary artery thrombosis. 4. Congestive hepatopathy PLAN: -continue IV diuresis and up titration of beta blockade. Increasing Lasix to Q 8 hours. -Added spironolactone. -request made for life vest in motion. -the plan is to transfer to [facility] for coronary angiogram tomorrow and then bring back to this hospital. -Will fax papers to [facility] for LifeVest. JULIANE: 1-2 days. Exam Vital Signs (past 8 hours): - 05/16/25 00:00 05/16/25 03:00 05/16/25 04:00 Temperature 97.3 F L Pulse Rate 81 Respiratory Rate 20 Blood Pressure 100/75 Pulse Oximetry 90 L Oxygen Delivery Method Room Air Room Air Oxygen Flow Rate 95 0 90 Oxygen Delivery Method Room Air Oxygen Flow Rate 90 Objective Labs 05/15/25 06:00 05/16/25 05:30 Labs: Laboratory Results - last 24 hr 05/15/25 05/16/25 17:35 05:30 Sodium 124 L 125 L Potassium 3.8 3.7 Chloride 90 L 92 L Carbon Dioxide 24 27 BUN 51 H 47 H Creatinine 1.32 H 1.30 H Estimated GFR 57 L 58 L BUN/Creatinine Ratio 38.6 H 36.2 H Glucose 160 H 123 H Calcium 8.2 L 8.3 L Magnesium 2.0 2.1 Total Bilirubin 1.2 AST 116 H ALT 245 H Alkaline Phosphatase 249 H Total Protein 6.7 Albumin 3.3 L Globulin 3.4 Albumin/Globulin Ratio 1.0 PFSH Medical History Acute systolic heart failure Social History household members: spouse 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 Quality VTE Deep Vein Thrombosis/Pulmonary Embolism Present on Admission: No
[2025-05-16] MEDS: HEPARIN 5,000 UNIT/ML VIAL 5000 UNIT SUBCUT (08:59)
[2025-05-16] MEDS: MAGNESIUM OXIDE 400 MG TABLET PO (08:59)
[2025-05-16] MEDS: LOSARTAN 25 MG TABLET 12.5 MG PO (09:01)
[2025-05-16] MEDS: SODIUM CHLORIDE 0.9% FLUSH 10 ML IV ×2 (09:09→15:15)
--- NOTE | 2025-05-16 10:32 | DI.ECHO.S_ITS ---
[place] [facility]---------+ [facility] : : [address] : : [place] : : [id number] : : Phone: [phone] Echocardiogram Report + + :Name: STEVIE ANTUNEZ Study Date: 05/16/2025 Height: 68 in : :[facility] ReadingLocation: Weight: 155 lb : : Gender: Male BSA: 1.8 m2 : :: 1955 Age: 70 yrs BP: 105/77 mmHg: :Reason For Study: F/U EF : :Ordering Physician: ALVIN, : :DAKOTAH Dash Performed By: Garry Mitchell : :Referring: DAKOTAH ESQUIVEL : + + Interpretation Summary A two-dimensional transthoracic echocardiogram with color flow and Doppler was performed in limited views only to assess EF. The ejection fraction is estimated to be 10-15%. Paradoxical septal motion is consistent with right ventricular volume overload. The right ventricular systolic pressure is estimated to be at least 48 mmHg based on an estimated right atrial pressure of 8 mm Hg. There is moderate mitral regurgitation. There is moderate tricuspid regurgitation. Procedure: A two-dimensional transthoracic echocardiogram with color flow and Doppler was performed in limited views only to assess EF. The study quality was technically good. Comparison is made with the echocardiogram of 05/11/2025. The patient was in normal sinus rhythm during the exam. Left Ventricle: The left ventricle is severely dilated. There is normal left ventricular wall thickness. The ejection fraction is estimated to be 10-15%. There are regional wall motion abnormalities as specified. Paradoxical septal motion is consistent with right ventricular volume overload. Atria: The left atrial size is normal. Right atrial size is normal. Mitral Valve: There is moderate mitral regurgitation. Aortic Valve: No aortic regurgitation is present. Tricuspid Valve: There is moderate tricuspid regurgitation. The right ventricular systolic pressure is estimated to be at least 48 mmHg based on an estimated right atrial pressure of 8 mm Hg. Pulmonic Valve: There is mild pulmonic regurgitation. Pericardium/ Pleura There is no pericardial effusion. There is no pleural effusion. MMode/2D Measurements & Calculations LVIDd: 7.3 cm IVC diam: 2.1 cm LVIDs: 6.7 cm FS: 9.0 % IVSd: 0.98 cm LVPWd: 1.0 cm LV mckeon. diameter/BSA (cm/m^2): 4.0 LV sys. diameter/BSA (cm/m^2): 3.6 Doppler Measurements & Calculations TR max damion: 314.9 cm/sec TR max P.7 mmHg Reading Physician:12:22 PM
--- NOTE | 2025-05-16 11:33 | CM.DPC ---
DCP Life Vest Cont: Per , Ham Stringer update is that pt can d/c today if Life Vest secured prior to discharge. Roof Fitter Zarina provided the information and [employer] Life Vest agreement form to CASEYO, ELECTRICAL ENGINEERING MANAGER, [employer]UC[employer] SPECIALIST and was approved for utilizing [employer] [facility] [place] if payment needed for the first month of the Life Vest. No agreement for longer than the first month payments. CM Roof Fitter signed [employer] Life Vest form and GÓMEZ faxed back to [employer] and called Tessa from [employer] p [phone] and updated her that form signed and faxed back. Tessa states she crissy contact her team to get someone scheduled for bedside Life Vest fit today and will update GÓMEZ on the time. Request is for family to be bedside for teach if possible but could be done later at home with family present if needed. GÓMEZ updated MD and attempted to meet bedside with pt to update but currently getting Echo bedside. GÓMEZ attempted to call spouse listed under contacts and no answer. MARAH Waldrop
[2025-05-16] MEDS: FUROSEMIDE 40 MG/4 ML VIAL IV (15:13)
--- NOTE | 2025-05-16 18:37 | PM.DS.1 ---
History of Present Illness History of Present Illness Chief complaint: sick 1wk. SOB Narrative: From H&P: 05/09: 70-year-old male with no previous significant history very active with walking yd work and gardening 1 week ago but increasing difficulty breathing thought it was the mask he was wearing to prevent pollen from being inhaled. This got worse noticed some ankle edema and finally was brought to the emergency department. Findings in the emergency department significant for gentleman with dyspnea hypoxia chest x-ray showing a very large cardiac silhouette and pleural effusion EKG showing sinus rhythm with left bundle branch block difficult to interpret ST segments and T-waves and QT interval of 470 Sodium 130 potassium 4.9 BUN 41 creatinine 1.5 Pro BNP 65750 troponin 0.07 Total bilirubin 2.1 AST 934 ALT 958 Echocardiogram: ) Severely enlarged left ventricle with severely reduced systolic function (EF 10-15%). 2) Moderately enlarged right ventricle with mildly reduced function. 3) There is moderate functional mitral regurgitation. 4) There is severe tricuspid regurgitation 5) The right ventricular systolic pressure is estimated to be at least 69 mmHg based on an estimated right atrial pressure of 15 mm Hg. Discharge Providers Provider Date of admission: 05/09/25 09:45 Discharge Date: 05/16/25 Consults: Cardiology- Dr. Cavazos. Discharge provider: Srinivasa Sanchez MD Summary Hospital Course Discharge Diagnosis: 1. Severe dilated cardiomyopathy ejection fraction 10-15% with 2. moderate tricuspid regurgitation with severe right-sided congestive heart failure and severe tricuspid regurgitation 3. Pulmonary artery thrombosis. 4. Congestive hepatopathy MIPS: [Y], the patient has documentation of a left ventricle ejection fracture less than or equal to 40%, or moderately or severely reduced left ventricle systolic function. [N], the patient has a history of heart transplant or left ventricular assist device (LVAD). [Y], the patient was prescribed Metoprolol succinate, bisoprolol, or carvedilol at discharge. Hospital Course: 05/09: Patient was admitted with acute heart failure with dyspnea and pulmonary edema. The patient was diuresed. Initial ECG revealed sinus rhythm with a left bundle branch block. Chest x-ray revealed pleural effusions pulmonary edema. Troponin 0.07. Echo revealed an EF of 10-15%. Cardiology was consulted. 05/10: Slow improvement with diuresis. 05/11: Slow improvement with diuresis. 05/12: Slow improvement with diuresis. 05/13: Transfer to [facility] for coronary angiogram which was negative for obstructive CAD. Diuresis continued. 05/14-05/16: Ongoing diuresis. Fitted for a Zoloft vest before discharge on May 16. Status at Discharge Cognitive/behavioral status at discharge: oriented Functional status at discharge: independent ambulation Overall status at discharge: patient is back to baseline Time Spent with Patient Time spent: Greater than 30 minutes Exam Vital Signs (past 8 hours): - 05/16/25 11:00 05/16/25 12:00 05/16/25 15:29 Temperature 98.1 F 97.2 F L Pulse Rate 79 76 Respiratory Rate 15 15 Blood Pressure 101/72 105/76 Pulse Oximetry 90 L 95 96 Oxygen Delivery Method Room Air Oxygen Flow Rate 0 0 0 05/16/25 16:10 Temperature Pulse Rate Respiratory Rate Blood Pressure Pulse Oximetry 93 Oxygen Delivery Method Room Air Oxygen Flow Rate 0 Oxygen Delivery Method Room Air Oxygen Flow Rate 0 Narrative Exam Narrative: NAD, alert and oriented. Fluent speech. Lungs are clear, normal rate and effort. Heart is regular, no murmur gallop or rub. Abdomen is soft, non distended. Extremities are free of edema. Objective ECG Impression: Intervals [place] Rate: 73 P: 60 ND: 176 QRS: -19 QRSD: 168 T: 143 QT: 466 QTc: 513 Interpretive Statements Normal sinus rhythm Left atrial enlargement Left bundle branch block NO SIGNIFICANT CHANGE FROM PRIOR TRACING Imaging Coronary angiogram:: Radiologist's impression: Negative for evidence of obstructive coronary artery disease. 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 Plan of Treatment: He was discharged on his cardiac medications, we will be seen by Dr. Cavazos in the next 2 weeks. We will follow a low-salt diet. Discharge Plan Discharge Plan Patient Disposition: Home Provider Discharge Comment: Stable for discharge home. Discharge orders & Medications Prescriptions: New carvedilol 3.125 mg Tablet 6.25 mg PO BID Qty: 60 2RF magnesium oxide 400 mg (241.3 mg magnesium) Tablet 400 mg PO DAILY Qty: 30 2RF losartan 25 mg Tablet 12.5 mg PO DAILY Qty: 30 2RF furosemide [Lasix] 20 mg tablet 20 mg PO DAILY Qty: 30 2RF spironolactone 25 mg tablet 25 mg PO DAILY Qty: 30 2RF Medication counseling provided by Pharmacist: No Follow up/Referrals: Ar Cavazos MD [Physician, Cardiology] Diet/Activity/Treatments Diet comment: low salt Activity: As toelrated. Visit Report/Discharge Packet Instructions: DI for Heart Failure Stand Alone Forms: Patient Portal/API Quality VTE Deep Vein Thrombosis/Pulmonary Embolism Present on Admission: No
== END 2025-05-16 19:55 | disposition home or self-care (01) | DRG 291 ==
LOC: ED 05-09 09:45 → AC 05-09 09:46
PROVIDERS: Family Medicine; Hospitalist; Internal Medicine Cardiovascular Disease; Admitting Provider Internal Medicine; Emergency Provider Emergency Medicine; Referring Provider Student in an Organized Health Care Education/Training Program; Visit Provider Internal Medicine
DX: I50.23 Acute on chronic systolic (congestive) heart failure (principal); I26.99 Other pulmonary embolism without acute cor pulmonale; I42.0 Dilated cardiomyopathy; N17.9 Acute kidney failure, unspecified; E87.1 Hypo-osmolality and hyponatremia; I34.0 Nonrheumatic mitral (valve) insufficiency; I07.1 Rheumatic tricuspid insufficiency; K76.1 Chronic passive congestion of liver; I44.7 Left bundle-branch block, unspecified; R74.01 Elevation of levels of liver transaminase levels
CPT/HCPCS: 36415; 71046; 71275; 80048; 80053; 81003; 83690; 83735; 83880; 84132; 84484; 85025; 93005; 93010; 93306; 93307; 96374; 99284; 99285; J1644; J1938; Q9967